=== PATIENT | male | born 1940 | race Caucasian/White ===

== ENCOUNTER 2022-01-08 13:15 | Outpatient (RCR) | payer SELFPAY | END 2022-04-08 23:59 | disposition home or self-care (01) | LOC: ANHBWCAUD 13:15 | DX: Z46.1 Encounter for fitting and adjustment of hearing aid (principal) | CPT/HCPCS: 92593 ==

== ENCOUNTER 2022-03-15 07:49 | Outpatient (CLI) | payer MEDICARE, BC, SELFPAY ==
--- NOTE | 2022-03-15 08:11 | ECG_ITS ---
Measurements Intervals [place] Rate: 54 P: 37 [place]: 285 QRS: 0 QRSD: 142 T: 2 QT: 428 QTc: 406 Interpretive Statements SINUS BRADYCARDIA WITH FIRST DEGREE AV BLOCK INTRAVENTRICULAR CONDUCTION DELAY EARLY PRECORDIAL R/S TRANSITION CONSIDER LATERAL INFARCT, AGE INDETERMINATE ABNORMAL ECG NO PREVIOUS ECG AVAILABLE FOR COMPARISON Electronically Signed On 03-15-2022 8:25:31 CDT by Sedrick Persaud D.O.
== END 2022-03-15 07:50 | disposition home or self-care (01) ==
PROVIDERS: PCP Internal Medicine; Visit Provider Neurological Surgery
DX: M48.061 Spinal stenosis, lumbar region without neurogenic claudication (principal); I44.0 Atrioventricular block, first degree; I45.9 Conduction disorder, unspecified
CPT/HCPCS: 36415; 86850; 86900; 86901; 93005

== ENCOUNTER 2022-03-19 00:06 | Day surgery (SDC) | payer MEDICARE, BC, SELFPAY ==
--- NOTE | 2022-03-14 09:44 | PC.NURSE ---
Report to the Outpatient Waiting Room, entrance under the green pavilion located off [facility], at time _0730 on date _03/19/22 . OR Time: ____929____. Time changes happen often and if your time is changed the preop area will call you the afternoon before. - You and your visitor will be asked to self-screen and do not enter if you have any COVID symptoms. - Only one visitor and NO children visitors are allowed at this time. - The patient visitor is requested to leave or wait in car when not with patient due to restrictions. - A mask is required within the hospital. Patients may have clear liquids (water, carbonated beverages, clear teas, apple juice) until 3 hours prior to surgery with a maximum of 20 ounces. - No food from midnight until time of surgery - Infants may have breast milk until 4 hours before surgery, formula 6 hours prior to surgery. - Children will be allowed to drink immediately following surgery. If applicable, please bring a bottle or sippy cup to assist with drinking. Juice, water, soda, and popsicles are readily available. For infants on formula, please bring formula the day of surgery. Pacifiers are allowed. Take the following medications with a SIP of water the morning of surgery: ___NONE Medications to discontinue per physician _ASPIRIN/ALEVE PER DR REARDON___ PRESERVISION 3 DAYS PRE OP Date to take last dose___PRESERVISION 03/15/22 Please no make-up, nail latvian, hairspray, perfume, deodorant, or body powder the day of surgery. No jewelry (including any body piercings) or valuables the day of surgery, leave them at home. Please take a shower or bath the night before, or the morning of, surgery with an antibacterial soap. Wear comfortable, loose fitting clothing. Children are encouraged to wear pajamas. - Jewelry must be removed prior to entering the operating room. Rings and piercings that are not removed may be cut off. - The hospital will not accept responsibility for valuables. - Please leave all valuables, including medications, at home the day of surgery. If you are going home after surgery, a licensed backhaul driver must drive you home. - NO public transportation without another adult. - We recommend that an adult stay with you for 24 hours following discharge. - We also recommend that you do not drive, make important decision, drink alcoholic beverages, or take any drugs that were not prescribed by your health care provider for at least 24 hours after your discharge time. For Pediatric surgeries, we recommend two adults accompany the child home (only one inside the building at this time). Follow any additional instructions given to you from your surgeon. If you or anyone in your household have experienced Covid symptoms in the past week, please notify your surgeon or the nurse liaison at the phone number below for possible testing. Telephone instructions given to _PATIENT and asked if any additional questions and then verbalized understanding. Patient advised to call surgeon office or pre surgery nurse liaison [phone] if any additional questions.
[2022-03-14 11:00] VITALS: BMI 29.8
--- NOTE | 2022-03-18 11:33 | WPDANESEPPF ---
Anes - Initial Pre Proc Eval Procedure: Operation Date: 03/19/22 09:30 Proposed Procedures p Left L5-S1 Far Lateral Foraminotomy, Microscopic Discectomy of Lumbar Spine - Kamari Ragsdale MD Date/Time: 03/18/22 11:33 Surgeon: Kamari Ragsdale MD Pre Op Diagnosis: foraminal stenosis lumbar, disc herniation Patient Data Age: 81 Gender: M Height: 1.83 m Weight: 99.8 kg Allergies Allergy/AdvReac Type Severity Reaction Status Date / Time No Known Allergies Allergy Verified 03/19/22 07:35 Home Medications Medication Instructions Recorded Confirmed Type amlodipine 5 mg tablet 5 mg PO HS 03/14/22 03/19/22 History aspirin 81 mg tablet,delayed 81 mg PO HS 03/14/22 03/19/22 History release (Adult Low Dose Aspirin) famotidine 20 mg tablet 20 mg PO PRN PRN Heartburn 03/14/22 03/19/22 History naproxen sodium 220 mg capsule 440 mg PO HS PRN Pain 03/14/22 03/19/22 History (Aleve) rosuvastatin 10 mg tablet 10 mg PO HS 03/14/22 03/19/22 History vit C 250 mg-vit E 90 mg-zinc 40 1 tablet PO HS 03/14/22 03/19/22 History mg-copper 1 ln-ehlaoj-pzemur capsule (PreserVision AREDS-2) ECG: Date of Service: 03/15/22 Procedure(s): CA 12 lead EKG Accession Number(s): [id number] cc: ~ ? Measurements Intervals? [place]? Rate: ? 54 ? P:? 37 [place]: ? 285? QRS:? 0 QRSD: ? 142? T:? 2 QT: ? 428? QTc:? 406? Interpretive Statements SINUS BRADYCARDIA WITH FIRST DEGREE AV BLOCK INTRAVENTRICULAR CONDUCTION DELAY EARLY PRECORDIAL R/S TRANSITION CONSIDER LATERAL INFARCT, AGE INDETERMINATE ABNORMAL ECG NO PREVIOUS ECG AVAILABLE FOR COMPARISON Electronically Signed On 03-15-2022 8:25:31 CDT by Sedrick Persaud D.O. Patient hx anesthesia problems: none Family hx anesthesia problems: none Results Review: All pre-operative results and documents have been reviewed as part of the pre-operative evaluation. [facility] Past Medical History Medical History (Updated 03/18/22 @ 11:34 by Cyrus Polanco MD) Arthritis Chronic GERD HTN (hypertension) Hyperlipidemia Prostate CA TIA (transient ischemic attack) Social History Social History Smoking status: Never smoker Living arrangements: alone Spiritual care concerns: No Anes - Eval Final PreProcedure Day of Procedure 03/18/22 11:33 Patient weight: obese Heart: regular rate and rhythm Lungs: clear to auscultation and normal air movement Airway: Mallampati scale class II Neurological: alert and oriented Last oral intake: >/= 8 hours ASA classification: III Emergent: no Anesthetic plan: proceed Anesthesia type and monitoring: general ETT Results Review: All pre-operative results and documents have been reviewed as part of the pre-operative evaluation. Informed Consent: The patient's anesthetic plan and its attendant risks and benefits were discussed with the patient/family/POA. Questions were solicited and answers provided to the satisfaction of the patient/family/POA.
[2022-03-19] VITALS (12 sets, daily range): BP systolic 106–166; BP diastolic 57–88; PULSE 60–96; RESP 11–20; TEMP 36.1–36.6; O2SAT 93–100
--- NOTE | ~2022-03-19 | XR_ITS ---
EXAMINATION: XR fluoroscopy no charge DATE: 03/19/2022 9:30 CDT INDICATION: L5-S1 FAR LEFT LATERAL DISCECTOMY . TECHNIQUE: 1 fluoroscopic image of the lumbar spine were obtained during L5-S1 discectomy performed b y the surgeon. I was not present in the operating room. Fluoroscopy exposure time was 3.7 seconds. COMPARISON: None FINDINGS: A single intraoperative spot view demonstrates instrument localization of the posterior element of L5 . IMPRESSION: Fluoroscopic documentation of L5-S1 discectomy. Please refer to the operative note for complete proce dural details . Reviewed, dictated and finalized at location K. IMPRESSION: Fluoroscopic documentation of L5-S1 discectomy. Please refer to the operative n ote for complete procedural details .
[2022-03-19] MEDS: LACTATED RINGERS 1,000 ML 30 ML IV CONT (08:10)
--- NOTE | 2022-03-19 08:25 | P.HP_ITS ---
H&P: HPI History of Present Illness Date/Time: 03/19/22 08:25 Chief Complaint: Back and leg pain Narrative: Saulo is an 81-year-old gentleman with back and left lower extremity discomfort related to stenosis in the foramen at L5-S1 on the left secondary to herniated nucleus pulposus who presents for decompression by way of far lateral foraminotomy and microdiskectomy on the left at L5-S1. He has not changed appreciably since we last saw him last. He does not have specific muscle group weakness and occasional dermatomal numbness. He does not have bowel or bladder difficulty. Review of Systems Review of Systems: Patient denies shortness of breath, cough, fever, chills, nausea, vomiting, weight loss, weight gain, chest pain, dysuria. He has back and leg pain as above. His review of systems is otherwise negative on 12 systems except as noted elsewhere. [facility] Past Medical History Medical History Arthritis Chronic GERD HTN (hypertension) Hyperlipidemia Prostate CA TIA (transient ischemic attack) Social History Social History Smoking status: Never smoker Living arrangements: alone Spiritual care concerns: No Meds Home Medications and Allergies Home Medications Medication Instructions Recorded Confirmed Type amlodipine 5 mg tablet 5 mg PO HS 03/14/22 03/19/22 History aspirin 81 mg tablet,delayed 81 mg PO HS 03/14/22 03/19/22 History release (Adult Low Dose Aspirin) famotidine 20 mg tablet 20 mg PO PRN PRN Heartburn 03/14/22 03/19/22 History naproxen sodium 220 mg capsule 440 mg PO HS PRN Pain 03/14/22 03/19/22 History (Aleve) rosuvastatin 10 mg tablet 10 mg PO HS 03/14/22 03/19/22 History vit C 250 mg-vit E 90 mg-zinc 40 1 tablet PO HS 03/14/22 03/19/22 History mg-copper 1 [id number]-krbugv-rpmnvx capsule (PreserVision AREDS-2) Allergies Allergy/AdvReac Type Severity Reaction Status Date / Time No Known Allergies Allergy Verified 03/19/22 07:35 Vital Signs Vital Signs - 24 hr 03/19/22 07:47 Temperature 97.5 F L Pulse Rate 60 Respiratory Rate 16 Blood Pressure 146/80 H Pulse Oximetry 100 Oxygen Delivery Room Air Exam Neuro: Other: Strength is normal in the bilateral lower extremities to direct confrontation Sensation is intact to light touch throughout the lower extremities. Clear to auscultation Regular rate and rhythm Assessment and Plan Assessment and plan (1) Lumbar disc herniation: Code(s): M51.26 - Other intervertebral disc displacement, lumbar region Status: Acute Plan Saulo is an 81-year-old gentleman who presents for left L5-S1 far lateral foraminotomy and microdiskectomy. I described to him again that operation, its risks, potential benefits, the operative and postoperative course in detail answered all his questions personally. He indicates understanding and elects to proceed with that operation.
--- NOTE | 2022-03-19 08:27 | WPDHPUPDATE1 ---
History and Physical Update Update Date/Time: 03/19/22 08:27 History and Physical has been reviewed, including an updated exam of the patient. There are NO changes in the patient's condition. Risks, benefits, and alternatives have been discussed and questions answered. Patient agrees to proceed with procedure.
[2022-03-19] MEDS: ceFAZolin 2 GM/D5W 50 ML 2 GM/50 ML BAG IVPB (09:04)
[2022-03-19] MEDS: LIDO 1%/EPINEPHRINE 1:100,000 20 ML VIAL 10 ML INFILTRATE (09:47)
[2022-03-19] MEDS: HEMOSTATIC MATRIX (SURGIFLO with THROMBIN) KIT 1 KIT XX (09:52)
--- NOTE | 2022-03-19 10:20 | P.OP_ITS ---
Procedure Note - Detailed Date of Procedure 03/19/22 Pre-op Diagnosis foraminal stenosis lumbar, disc herniation Post-op Diagnosis Same Procedure Performed Left L5-S1 far lateral foraminotomy and microdiskectomy Surgeon Kamari Ragsdale MD Director Of Event Management Subhash Anesthesia General Indications Saulo is an 81-year-old gentleman with left lower extremity pain related to compression in the foramina presents for decompression. This is at L5-S1 left. Description of Procedure Saulo was taken to the operating room in the supine position, was sedated, intubated and placed under general anesthesia in routine fashion. He was then turned into the prone position on a Dheeraj frame. The are operation on his back was examined, marked for incision, prepped and draped in routine sterile fashion. Incision was marked over the L5 and S1 spinous processes in the midline. This area was injected with 0.5% lidocaine with [id number] and Afrin. Intravenous antibiotics given prior to incision. Incision was made with a 10 blade scalpel down to the lumbodorsal fascia. A subperiosteal dissection of the muscle soft tissue away from the spinous process and lamina at L5 and S1 on the left was performed with a subperiosteal elevator and Bovie cautery. A verifying x-rays obtained to verify the level of operation. On the left at L5-S1 Midas-Robin drill was used to perform a lateral resection of the pars and facet until the soft contents of the foramen were encountered. The yellow ligament was lifted removed piecemeal using Kerrison punches under microscopy. The nerve root was identified and reflected superiorly. Heart disc herniation was noted beneath the nerve. Um the ligament was entered using 11 blade scalpel. An Renny curette curved curette Sherman rongeur and Kerrison punch were used to push free and removed fragments of hard disc herniation from beneath the nerve and removed from the wound. These maneuvers were performed until a nerve hook could be placed proximally distally above and below the nerve to confirm lack of compression. The wound was then copiously irrigated with bacitracin irrigation all bleeding stopped with bipolar and Bovie cautery and Gelfoam thrombin powder. The wound was then closed in layered fashion with 2-0 Vicryl interrupted sutures in the lumbodorsal fascia and Sukhwinder's layer. 3-0 Vicryl buried interrupted sutures were placed in the dermis and the skin was closed with a running 4-0 Monocryl subcuticular stitch and dressed with Dermabond. The patient was then allowed to wake up in the operating room was taken to the recovery room in stable condition. There were no immediate complications of this operation. All counts were reported correct at the end of the case. Blood loss was 25 cc. The patient was neurologically at his baseline postoperatively. Estimated Blood Loss 25 IV Fluids 1,000 Complications None Condition Stable Disposition PACU
[2022-03-19] MEDS: fentaNYL CITRATE INJ (*CRX) 100 MCG/2 ML VIAL 25 MCG IV PUSH ×2 (11:01→11:40)
--- NOTE | 2022-03-19 12:13 | PC.NURSE ---
This patient, Saulo Ozuna, was admitted to Medical Room 247-. Patient/family oriented to hospital policies and general routines including ID bracelet, bed and alarms, visiting hours, pain management, procedures, bathroom and other care routines, personal items, smoking policy, room service/diet, and visiting hours. Information on how to activate the Rapid Response Team has been discussed. Patient/Family are encouraged to report perceived risks to care and to ask questions if they do not understand what they are told or what they should do.
[2022-03-19] MEDS: KCL 20 MEQ/D5/0.45% SOD CHL 1,000 ML 100 ML IV CONT (12:21)
[2022-03-19] MEDS: HYDROcodone/acetaminophen (*CRX) 10-325 MG TABLET 1 TAB PO ×2 (12:21→21:04)
[2022-03-19] MEDS: ROSUVASTATIN 10 MG TABLET PO (21:05)
[2022-03-19] MEDS: amLODIPine BESYLATE 5 MG TABLET PO (21:05)
[2022-03-19] MEDS: OPTI-GEN TAB 1 TABLET PO (21:05)
[2022-03-19] MEDS: DOCUSATE SODIUM 100 MG CAPSULE PO (21:05)
[2022-03-20 00:20] VITALS: BP 91/46; PULSE 78; RESP 18; TEMP 36.7; O2SAT 94
[2022-03-20 03:41] VITALS: BP 107/62; PULSE 77; RESP 20; TEMP 36.6; O2SAT 93
--- NOTE | 2022-03-20 07:38 | WPDANESPN ---
Anes - Prog Note Post-Op Date/Time: 03/20/22 07:38 Cardiovascular status: normal Respiratory status: normal Airway patency: baseline Mental status: baseline Post-Op hydration status: normal Vital Signs: Last Vital Signs Temp 98 F 03/20/22 03:41 Pulse 77 03/20/22 03:41 Resp 20 03/20/22 03:41 BP 107/62 03/20/22 03:41 Pulse Ox 93 03/20/22 03:41 O2 Del Method Room Air 03/19/22 20:20 O2 Flow Rate 2 03/19/22 11:34 Pain Score (VAS): 3 I/O: Intake & Output 03/19/22 03/19/22 03/20/22 15:59 23:59 07:59 Intake Total 1590 1780 290 Balance 1590 1780 290 Patient Feedback: Patient satisfied with anesthetic care.
[2022-03-20] MEDS: HYDROcodone/acetaminophen (*CRX) 10-325 MG TABLET 1 TAB PO (09:27)
--- NOTE | 2022-03-20 11:37 | PCOTNOTE ---
Attempted to see patient this am, however upon entering patient was already bathed, dressed, and awaiting discharge. Pt had no concerns as pertains to OT prior to leaving. Pt is planning to stay with girlfriend and is comfortable with adaptive equipment training performed yesterday to follow spinal precautions with bathing and dressing techniques.
== END 2022-03-20 11:57 | disposition home or self-care (01) ==
LOC: ANHSURGERY 09:08 → ANH2MED 12:02
PROVIDERS: PCP Internal Medicine; Visit Provider Neurological Surgery
PROC: (CPT 63005; principal; 2022-03-19 09:30)
DX: M51.26 Other intervertebral disc displacement, lumbar region (principal); M48.061 Spinal stenosis, lumbar region without neurogenic claudication; I10 Essential (primary) hypertension; E78.5 Hyperlipidemia, unspecified; K21.9 Gastro-esophageal reflux disease without esophagitis; Z86.73 Personal history of transient ischemic attack (TIA), and cerebral infarction without residual deficits; Z79.82 Long term (current) use of aspirin; Z85.46 Personal history of malignant neoplasm of prostate; E66.9 Obesity, unspecified; Z68.31 Body mass index [BMI] 31.0-31.9, adult
CPT/HCPCS: 63056; 97161; 97165; 97530; 97535; 99199; A9270; J0690; J1100; J2405; J2704; J2710; J3010; J3480; J7120

== ENCOUNTER 2022-05-03 14:13 | Outpatient (CLI) | payer MEDICARE, BC, SELFPAY ==
--- NOTE | ~2022-05-03 | XR_ITS ---
XR lumbar spine 2-3V DATE: 05/03/2022 14:34 INDICATION: Bilateral low back pain, chronic. No injury. TECHNIQUE: AP, lateral, coned lateral lumbosacral views COMPARISON: None FINDINGS: There is minimal anterolisthesis at L2-3 and L4-5 due to degenerative changes apophyseal dano ints. There is mild to moderate degenerative disc disease at L2-3 through L5-S1.. No fracture or bone destruction. The sacroiliac joints are intact. IMPRESSION: Multilevel mild to moderate degenerative disc disease Reviewed, dictated and finalized at location A.
== END 2022-05-03 14:14 | disposition home or self-care (01) ==
LOC: ANHIMG 14:17
PROVIDERS: PCP Internal Medicine; Visit Provider Neurological Surgery
DX: M51.26 Other intervertebral disc displacement, lumbar region (principal); Z98.890 Other specified postprocedural states; M51.36 Other intervertebral disc degeneration, lumbar region
CPT/HCPCS: 72100

== ENCOUNTER 2023-12-30 08:30 | Outpatient (RCR) | payer SELFPAY | END 2024-03-23 23:59 | disposition home or self-care (01) | LOC: ANHBWCAUD 08:30 | PROVIDERS: PCP Internal Medicine | DX: Z46.1 Encounter for fitting and adjustment of hearing aid (principal) | CPT/HCPCS: 92593; 99199 ==

== ENCOUNTER 2024-01-20 12:25 | Outpatient (CLI) | payer MEDICARE, BC, SELFPAY ==
--- NOTE | ~2024-01-20 | XR_ITS ---
XR knee RT min 4V 01/20/2024 12:39 Indication: Right knee pain Procedure: 4 views right knee Comparison: No prior studies for comparison. Findings: No fracture or traumatic malalignment. No significant joint space narrowing. No joint effus ion. No foreign bodies. Impression: 1: No significant bone or joint abnormality. Reviewed, dictated and finalized at location B. Impression: 1: No significant bone or joint abnormality.
== END 2024-01-20 12:26 | disposition home or self-care (01) ==
PROVIDERS: PCP Internal Medicine; Visit Provider Internal Medicine
DX: M17.11 Unilateral primary osteoarthritis, right knee (principal)
CPT/HCPCS: 73564

== ENCOUNTER 2024-05-12 12:59 | Emergency (ER) | payer MEDICARE, BC, SELFPAY ==
[2024-05-12 13:06] VITALS: BP 173/83; PULSE 62; RESP 16; TEMP 36.3; O2SAT 99
--- NOTE | 2024-05-12 14:01 | ED_ITS ---
HPI - URI/Sore Throat General Chief Complaint: Upper Respiratory Infection Stated Complaint: Sore Throat Time Seen by Provider: 05/12/24 13:50 Source: patient, RN notes reviewed and old records reviewed Mode of arrival: ambulatory Limitations: no limitations History of Present Illness HPI Narrative: 84 year old male who presents to [facility] care with complaints of sore throat, nasal congestion and drainage, and left ear pain for past 3 days.Patient reports that his left ear feels plugged has not noted any drainage from his ear, denies any tragal tenderness. Patient states that he did put some H2O2 in his left ear. and he has taken Claritin for his nasal congestion and drainage. Patient denies any fevers or any body aches. MD elicited complaint: sore throat, rhinorrhea, nasal congestion and other (ear pain) Pertinent past history: other (sinus problem) Onset (ago): day(s) (3-4 days) Pain scale (0-10): 4 Able to tolerate fluids by mouth: Yes Exacerbating factors: swallowing Treatments prior to arrival: other (claritin, peroxide to left ear) Related Data Allergies Allergy/AdvReac Type Severity Reaction Status Date / Time benzonatate Allergy Mild Itching Verified 05/12/24 13:19 tramadol Allergy Mild Itching Verified 05/12/24 13:19 lisinopril AdvReac Mild Cough Verified 05/12/24 13:19 Review of Systems Review of Systems: CONSTITUTIONAL: Denies malaise, chills, sweats, or fever. EYES: Denies visual changes, redness, or discharge. ENT: Reports rhinorrhea, congestion, sinus pain,left otalgia and sore throat. CARDIOVASCULAR: Denies chest pain, palpitations, or edema. RESPIRATORY: Reports no acute cough.? Denies dyspnea. GASTROINTESTINAL: Denies abdominal pain, nausea, vomiting, diarrhea SKIN: Denies rash or itching. MUSCULOSKELETAL: Denies myalgia. NEUROLOGIC: Denies headache. All systems reviewed & are unremarkable except as noted in HPI and below PMFSH Past Medical History Medical History Arthritis Chronic GERD HTN (hypertension) Hyperlipidemia Prostate CA TIA (transient ischemic attack) Surgical History Surgical History H/O Spinal surgery Family History Family History Father Diabetes mellitus Mother Hypertension Social History Social History Social History: Caffeine-coffee Smoking status: Former smoker Alcohol intake: current Alcohol use details: rarely Substance use: never Substance use type: does not use Lack of Transportation: No Lack of Food: Never True Current Housing: I Do Not Have Housing Concerned About Future Housing: No Difficulty Paying Gas/Electric Bills: No Difficulty Paying for Meds: No Currently Unemployed: No Education: Grade School Difficulty w/ Childcare or Family Care: No Living arrangements: alone Spiritual care concerns: No Agree to blood products: Yes Comments At time of signature, agree with nursing past medical, surgical, social and family history. There is no relevant family history pertinent to the presenting complaint Exam Narrative: GENERAL: Well-appearing, well-nourished, and in no acute distress. HEAD: Normocephalic EYES: PERRLA, conjunctivae clear ENT: Nares clear, turbinates edematous and erythematous, clear discharge. Mucous membranes moist.Left TM red, Right TM pearly handy with dull light reflex; no tragal tenderness. Oropharynx erythematous without lesions. Tonsils not enlarged and without exudate, no drooling, no hoarseness, no trismus, uvula midline.post nasal drainage noted NECK: Supple. No lymphadenopathy CHEST: Clear to auscultation, breath sounds equal. No wheezing, rhonchi, rales, or stridor. No respiratory distress, speaks in full sentences.no cough noted SAO2 99% on room air HEART: Regular rate and rhythm. No murmur heard. SKIN: Warm, dry, no rash. NEURO: Alert and oriented x3. PSYCH: Normal mood and affect Course Course Emergency Course: Patient is aware of diagnosis, understands and agrees to treatment plan.? Ant icipatory guidance given.? Patient agrees to follow-up as directed and is aware of reasons to seek care at the emergency department. Portions of this record may have been created with voice recognition software Level of Care: Express Care Visit Vital Signs Vital signs: Vital Signs Temperature 36.3 C L 05/12/24 13:06 Pulse Rate 62 05/12/24 13:06 Respiratory Rate 16 05/12/24 13:06 Blood Pressure 173/83 H 05/12/24 13:06 Pulse Oximetry 99 05/12/24 13:06 Temperature 36.3 C L 05/12/24 13:06 Pulse Rate 62 05/12/24 13:06 Respiratory Rate 16 05/12/24 13:06 Blood Pressure 173/83 H 05/12/24 13:06 Pulse Oximetry 99 05/12/24 13:06 Reviewed MDM - URI/Sore Throat MDM Narrative Medical decision making narrative: Differential diagnosis considered: Espinoza virus, strep pharyngitis, allergic rhinitis, upper respiratory tract infection, sinusitis, rhinosinusitis, nasopharyngitis. viral pharyngitis, otitis media, otitis externa, pneumonia, bronchitis, viral cough syndrome, viral syndrome, and influenza.? Exam findings show no acute concerns or changes; patient is non-toxic appearing and is in no distress.? Patient is appropriate for outpatient treatment and follow-up. Differential Diagnosis Differential diagnosis: Likely upper respiratory infection, otitis media, sinusitis, viral infection, pharyngitis and other (strep pharyngitis) Medical Records Attestation: I reviewed the patient's medical records. Lab Data Attestation: I reviewed the patient's lab results. Lab results narrative: strep screen negative, culture sent Labs: Lab Results 05/12/24 Range/Units 14:02 POC Grp A Strep Screen Negative (Negative) Critical Care Time Critical Care Time Critical Care Time: No Discharge Plan Discharge Clinical Impression: Acute left otitis media, Pharyngitis Patient Disposition: Home, Self-Care Condition: Stable Instructions: Antibiotic Form, Pharyngitis (ED), Ear Infection (ED) Additional Instructions: Increase fluids especially juices and water Hite-unu-xdoglia cough and cold medicine of your choice for your symptoms Zyrtec Claritin or Shanta daily include Coricidin brand decongestant heat to the face 20-30 minutes 4-6 times a day for pain Salt water gargles, throat lozenges or throat sprays as desired Antibiotic as directed--finished the medication Tylenol or ibuprofen for any fever pain If your symptoms persist, change or worsen significantly before you can contact your personal physician then please, without delay, go to the emergency department for further evaluation. Follow-up with PCP in 7-10 days or sooner if needed Follow up with PCP soon in regards to your blood pressure which is elevated above threshold for referral. Blood pressure above 120/80 may indicate pre- hypertension. 173/83 Prescriptions: New amoxicillin 875 mg tablet 875 mg PO Q12H Qty: 20 0RF Follow-up/Referrals: Beena,Dmitriy Alcala MD [Primary Care Provider] - Time of Disposition: 14:10 Quality [place] Coma Scale Eyes: Open Verbal: Oriented and Alert Motor: Follows Commands [place] Coma Total Score: 15
[2024-05-12 14:04] LABS: EDSTREPNEGPOS1 Negative (Negative)
== END 2024-05-12 14:13 | disposition home or self-care (01) ==
PROVIDERS: Emergency Provider Registered Nurse; PCP Internal Medicine
DX: H66.92 Otitis media, unspecified, left ear (principal); J02.9 Acute pharyngitis, unspecified; M19.90 Unspecified osteoarthritis, unspecified site; K21.9 Gastro-esophageal reflux disease without esophagitis; I10 Essential (primary) hypertension; E78.5 Hyperlipidemia, unspecified; Z86.73 Personal history of transient ischemic attack (TIA), and cerebral infarction without residual deficits; Z85.46 Personal history of malignant neoplasm of prostate; Z87.891 Personal history of nicotine dependence
CPT/HCPCS: 87081; 87880; 99213; G0463

== ENCOUNTER 2025-02-01 10:36 | Outpatient (CLI) | payer MEDICARE, BC, SELFPAY ==
--- OUTSIDE RECORDS SUMMARY | 2025-02-01 11:06 | XMS_ITS | Clinical Summary ---
Author Organization [facility] Address [address] [place] [address] Phone Care Team Providers Care Eeg Tech Name Role Phone Dmitriy Hargrove MD Primary Care Provider Social History Tobacco Use Types Packs/Day Years Used Date Smoking Tobacco: Never Assessed Sex and Gender Information Value Date Recorded Sex Assigned at Not on file Legal Sex Male 8:59 PM CDT Gender Identity Not on file Sexual Orientation Not on file Plan of Treatment Health Maintenance Due Date Last Done Comments Hepatitis C Virus (HCV) Screening 1940 Zoster Immunization (1 of 2) 1989 Respiratory Syncytial Virus (RSV) Immunization (Adult) (1 - 1-dose 75+ series) 2014 SARS-COV-2 Immunization ( season) 2024 05/28/2022, 06/12/2021, 08/28/2020, Additional history exists Influenza Immunization (#1) 02/28/202503/30, 04/10/2021, 03/24/2020, Additional history exists Pneumococcal Immunization (50+ years) Completed 11/15/2015, 04/11/2014 DTaP/Tdap/Td Immunization Discontinued 04/13/2019 TdaP Immunization Completed 04/13/2019 Hepatitis B Immunization Aged Out No longer eligible based on patient's age to complete this topic Human Papillomavirus (HPV) Immunization Aged Out No longer eligible based on patient's age to complete this topic Meningococcal Immunization (ACWY) Aged Out No longer eligible based on patient's age to complete this topic Rotavirus Immunization Aged Out No lo nger eligible based on patient's age to complete this topic Insurance [facility] MEDICARE Care Teams Eeg Tech Relationship Specialty Start Date End Date Dmitriy Hargrove MD [address] [facility] [facility] [address] [place] [id number] PCP - General Internal Medicine 04/10/23
--- OUTSIDE RECORDS SUMMARY | 2025-02-01 11:06 | XMS_ITS | Encounter Summary ---
Author Organization [facility] Address [address] [place] [address] Phone Care Team Providers Care Property Management Bookkeeper Name Role Phone Dmitriy Hargrove MD Primary Care Provider Encounter Details Date Type Department Care Team (Late st Contact Info) Description 11/10/2017 Orders Only [facility] ProviderRigoberto MD [address] [place] [address] Social History Tobacco Use Types Packs/Day Years Used Date Smoking Tobacco: Never Smokeless Tobacco: Never Alcohol Use Standard Drinks/Week Comments Yes 0 (1 standard drink = 0.6 oz pur e alcohol) Sex and Gender Information Value Date Recorded Sex Assigned at Not on file Legal Sex Male 7:39 PM PLATFORM POWER TECHNICIAN Gender Identity Not on file Sexual Orientation Not on file documented as of this encounter Plan of Treatment Not on file documented as of this encounter Procedures Procedure Name Priority Date/Time Associated Diagnosis Comments DISCHARGE LABORATORY CUMULATIVE REPORT 11/10/2017 12:00 AM CDT documented in this encounter Results * DISCHARGE LABORATORY CUMULATIVE REPORT (11/10/2017 12:00 AM CDT) Narrative 11/10/2017 12:00 AM CDT Ordered by an unspecified provider. us Historical Provider LAB BLOOD ORDERABLES Sarika l Result documented in this encounter Visit Diagnoses Not on filedocumented in this encounter Additional Health Concerns Infection Onset Date Last Indicated Resolved Time COVID: Suspected 12/28/2021 12/28/2021 12/28/2021 2:39 PM CDT COVID19 12/28/2021 12/28/2021 01/07/2022 3:05 AM CDT COVID: Recovered Comment:Added based on recent COVID infection. 01/07/2022 03/01/2022 05/07/2022 3:[address] COVID: Suspected 05/21/2022 05/21/2022 05/21/2022 10:52 AM PLATFORM POWER TECHNICIAN COVID: Suspected 08/27/2022 08/27/2022 08/27/2022 5:20 PM PLATFORM POWER TECHNICIAN COVID: Suspected 01/13/2023 01/13/2023 01/13/2023 11:21 AM CDT COVID: Suspected 03/25/2023 03/25/2023 03/25/2023 3:56 PM CDT COVID: Suspected 01/25/2024 01/25/2024 01/25/2024 2:25 PM CDT COVID: Suspected 09/16/2024 09/16/2024 09/16/2024 10:00 AM CDT COVID: Suspected 01/13/2025 01/13/2025 01/13/2025 1:45 PM CDT documented as of this encounter Care Teams Property Management Bookkeeper Relationship Specialty Start Date End Date Dmitriy Hargrove MD PCP - General 09/27/16 documented as of this encounter
--- OUTSIDE RECORDS SUMMARY | 2025-02-01 11:06 | XMS_ITS | Encounter Summary ---
Author Organization [facility] Address [address] [place] [id number] Care Team Providers Care Elementary Substitute Teacher Name Role Phone Dmitriy Hargrove MD Primary Care Provider Reason for Visit * Reason Onset Date Comments Scheduling Appointments 07/31/2021 no answe r to confirm [place] exam Encounter Details Date Type Department Care Team ([facility] Contact Info) Description 07/31/2021 Telephone [facility] [address] [place] [phone] Apurva Rapp RT Scheduling Appointments (no answer to confirm [place] exam) Social History Tobacco Use Types Packs/Day Years Used Date Smoking Tobacco: Never Smokeless Tobacco: Never Alcohol Use Standard Drinks/Week Comments Yes 0 (1 standard drink = 0.6 oz pur e alcohol) PHQ-2 Answer Date Recorded PHQ-2 Total Score (If total score is 3 or more points, staff should administer the PHQ-9) 0 05/01/2021 Sex and Gender Information Value Date Recorded Sex Assigned at Not on file Legal Sex Male 7:39 PM WOODEN TANK ERECTOR Gender Identity Not on file Sexual Orientation Not on file documented as of this encounter Plan of Treatment Not on file documented as of this encounter Visit Diagnoses Not on filedocumented in this encounter Additional Health Concerns Infection Onset Date Last Indicated Resolved Time COVID: Suspected 12/28/2021 12/28/2021 12/28/2021 2:39 PM CDT COVID19 12/28/2021 12/28/2021 01/07/2022 3:05 AM CDT COVID: Recovered Comment:Added based on recent COVID infection. 01/07/2022 03/01/2022 05/07/2022 3:[address] COVID: Suspected 05/21/2022 05/21/2022 05/21/2022 10:52 AM WOODEN TANK ERECTOR COVID: Suspected 08/27/2022 08/27/2022 08/27/2022 5:20 PM WOODEN TANK ERECTOR COVID: Suspected 01/13/2023 01/13/2023 01/13/2023 11:21 AM CDT COVID: Suspected 03/25/2023 03/25/2023 03/25/2023 3:56 PM CDT COVID: Suspected 01/25/2024 01/25/2024 01/25/2024 2:25 PM CDT COVID: Suspected 09/16/2024 09/16/2024 09/16/2024 10:00 AM CDT COVID: Suspected 01/13/2025 01/13/2025 01/13/2025 1:45 PM CDT documented as of this encounter Care Teams Elementary Substitute Teacher Relationship Specialty Start Date End Date Dmitriy Hargrove MD PCP - General 09/27/16 documented as of this encounter
--- OUTSIDE RECORDS SUMMARY | 2025-02-01 11:06 | XMS_ITS ---
Author Organization [facility] Address [address] [place] [id number] Care Team Providers Care Data Entry Operator Name Role Phone Dmitriy Hargrove MD Primary Care Provider Active Problems Problem Noted Date Diagnosed Date Acute non-recurrent pansinusitis 01/13/2025 Assessment & Plan (01/13/2025 2:24 PM CDT): Symptoms consistent pansinusitis, mild course however given prolonged duration patient's age will treat with Augmentin for 5 days at this time Nasal congestion 01/13/2025 Assessment & Plan (01/13/2025 2:24 PM CDT): COVID flu negative Acute dermatitis 01/02/2024 Eczema 01/02/2024 Basal cell carcinoma of skin 12/19/2023 Hemangioma of skin and subcutaneous tissue 12/09 Neoplasm of uncertain behavior of skin Actinic keratosis 12/10/2023 Seborrheic keratosis 12/10/2023 Hypersomnia 08/30/2022 Assessment & Plan (08/30/2022 2:14 PM PACKAGING SALES CONSULTANT): Home sleep study rule out sleep apnea call back for results Purulent postnasal drainage 08/09/2022 Assessment & Plan (08/09/2022 2:00 PM PACKAGING SALES CONSULTANT): Continue Pepcid 20 mg twice daily Start Flonase 2 sprays into each nostril while looking down over the sink, do not sniff in or blow nose after use for at least 30 minutes 50 ounces of caffeine free and soda free fluid daily No masses or lesions on the voice box Prediabetes 06/14/2022 Assessment & Plan (03/25/2023 3:17 PM CDT): Lab Results Component Value Date HGBA1C 5.6 12/06/2022 HGBA1C 5.9 (H) 06/04/2022 Lab Results Component Value Date LDLCALC 90 12/06/2022 CREATININE 1.08 12/06/2022 At goal Continue current regimen History of 2019 novel coronavirus disease (COVID -19) 03/01/2022 Medicare annual wellness visit, subsequent 12/11 Right hip pain 08/03/2021 Sensorineural hearing loss ( SNHL) of left ear with restricted hearing of right ear 07/23/2021 Assessment & Plan (08/13/2021 3:32 PM PACKAGING SALES CONSULTANT): Hearing test - [facility], consider Cochlear implant candidacy based on results [facility] [phone] [place] [address] Assessment & Plan (07/23/2021 10:16 AM PACKAGING SALES CONSULTANT): Obtain Hearing test from [facility] and then call regarding candidacy for Cochlear implant Oropharyngeal dysphagia 07/23/2021 Assessment & Plan (07/23/2021 10:16 AM PACKAGING SALES CONSULTANT): Esophagram - call with results Centralized Scheduling: Sacroiliitis 07/03/2021 Laryngopharyngeal reflux (LPR) 06/01/2021 Assessment & Plan (08/09/2022 2:00 PM PACKAGING SALES CONSULTANT): Continue Pepcid 20 mg twice daily Start Flonase 2 sprays into each nostril while looking down over the sink, do not sniff in or blow nose after use for at least 30 minutes 50 ounces of caffeine free and soda free fluid daily No masses or lesions on the voice box Assessment & Plan (06/01/2021 8:53 AM PACKAGING SALES CONSULTANT): Call if ears plug up Start Pepcid 20 mg at bedtime to help with pain with swallowing, call if difficulty swallowing does not improve 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 Assessment & Plan (08/09/2022 2:00 PM PACKAGING SALES CONSULTANT): Continue Pepcid 20 mg twice daily Start Flonase 2 sprays into each nostril while looking down over the sink, do not sniff in or blow nose after use for at least 30 minutes 50 ounces of caffeine free and soda free fluid daily No masses or lesions on the voice box Assessment & Plan (06/01/2021 8:53 AM PACKAGING SALES CONSULTANT): Start Pepcid 20 mg at bedtime to help with pain with swallowing, call if difficulty swallowing does not improve Insomnia secondary to chronic pain 04/17/2021 Other male erectile dysfunction 04/24/2020 Lumbar radiculopathy 09/01/2019 History of prostate cancer 07/06/2019 Lumbar facet arthropathy 07/02/2018 Allergic rhinitis 04/16/2018 Vertigo 03/10/2017 Assessment & Plan (03/10/2017 3:05 PM CDT): Likely to be multifactorial. The middle ear infection is likely exacerbating the majority of the vertigo. Meclizine was prescribed 25 mg t.i.d. p.r.n. for acute relief of vertigo. I advised him the amlodipine to do this as well and the rise slowly after taking medication. Certainly if symptoms persist or they worsen after treating middle ear infection he must follow up in office to determine need further management/assessments. Benign hypertension 11/13/2013 Overview (10/02/2016): BENIGN HYPERTENSION Assessment & Plan (09/13/2024 12:57 PM CDT): BP Readings from Last 3 Encounters: 09/13/24 118/72 06/16/24 118/74 01/29/24 110/70 Vitals BP 118/72 (BP Location: Left arm, Patient Position: Sitting) Pulse 70 Resp 16 Ht 182.9 cm (6' 0.01) Wt 102.6 kg (226 lb 4.8 oz) SpO2 98% BMI 30.68 kg/m Lab Results Component Value Date POTASSIUM 4.3 06/01/2024 At goal at this time Continue current regimen Assessment & Plan (03/25/2023 3:32 PM CDT): BP Readings from Last 3 Encounters: 01/13/23 100/62 12/13/22 124/72 09/05/22 132/80 There were no vitals taken for this visit. Lab Results Component Value Date POTASSIUM 3.8 12/06/2022 At goal at this time D/c norvasc 5 mg every day - has not been taking and bp is well controlled Assessment & Plan (10/22/2021 12:48 PM CDT): Recommend DASH diet, heart-healthy lifestyle, exercise. Discussed the risks of hypertension. Assessment & Plan (11/30/2020 12:27 PM CDT): Recommend DASH diet, heart-healthy lifestyle, exercise. Discussed the risks of hypertension. Assessment & Plan (04/14/2020 9:31 AM CDT): Normotensive in clinic. Pt was advised of continuing heart healthy DASH diet, current antihypertensives, increase exercise as tolerated. Risk of HTN were reviewed. Assessment & Plan (01/24/2020 12:18 PM CDT): Normotensive in clinic. Pt was advised of continuing heart healthy DASH diet, current antihypertensives, increase exercise as tolerated. Risk of HTN were reviewed. Assessment & Plan (05/06/2019 1:49 PM PACKAGING SALES CONSULTANT): Normotensive in clinic. Continue to monitor while on corticosteroids. Normotensive in clinic today. Cnt. With current hypertensives, avoid OTC decongestants, Cnt. With dash diet mild to moderate exercise as tolerated for overall heart health Assessment & Plan (02/10/2019 9:14 AM CDT): Improved upon recheck. Cnt. Current antihypertensive, Norvasc, dash/low-fat diet, baby aspirin for heart health therapy, and mild to moderate daily exercise as tolerated given progressive arthritis. Assessment & Plan (01/06/2019 8:44 AM CDT): Normotensive today in clinic, will Cnt. To monitor given Pt was placed on meloxicam for arthritic control. Cnt. With Norvasc, dash diet follow-up in 1 month for BP recheck Assessment & Plan (03/10/2017 3:02 PM CDT): Stable in office today. Refilled amlodipine. Pt was advised of continuing heart healthy DASH diet, increase exercise as tolerated, and continuing to monitor for any lower leg edema, headaches, changes in vision, or facial flushing. Continue ASA and anti-hypertensives as prescribed. 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 Overview (10/03/2016): MIXED HYPERLIPIDEMIA Assessment & Plan (09/13/2024 12:56 PM CDT): Lab Results Component Value Date CHOL 201 (H) 06/01/2024 CHOL 225 (H) 12/05/2023 CHOL 178 06/07/2023 Lab Results Component Value Date HDL 42 06/01/2024 HDL 52 12/05/2023 HDL 48 06/07/2023 Lab Results Component Value Date LDLCALC 124 06/01/2024 LDLCALC 133 (H) 12/05/2023 LDLCALC 116 06/07/2023 LDL 161 (H) 10/31/2015 LDL 156 (H) 10/27/2014 Lab Results Component Value Date TRIG 196 (H) 06/01/2024 TRIG 201 (H) 12/05/2023 TRIG 69 06/07/2023 No results found for: POCCHDLR No results found for: POCNONHDL No results found for: POCCHLPL Lipids at goal Elevated LDL and not at goal For now continue current regimen Assessment & Plan (03/25/2023 3:31 PM CDT): Lab Results Component Value Date CHOL 153 12/06/2022 CHOL 166 06/04/2022 CHOL 163 11/30/2021 Lab Results Component Value Date HDL 44 12/06/2022 HDL 49 06/04/2022 HDL 51 11/30/2021 Lab Results Component Value Date LDLCALC 90 12/06/2022 LDLCALC 93 06/04/2022 LDLCALC 74 11/30/2021 LDL 161 (H) 10/31/2015 LDL 156 (H) 10/27/2014 Lab Results Component Value Date TRIG 97 12/06/2022 TRIG 122 06/04/2022 TRIG 188 (H) 11/30/2021 No results found for: POCCHDLR No results found for: POCNONHDL No results found for: POCCHLPL Lipids at goal Can d/c rosuvastatin now Chronic bilateral low back pain with left-sided sciatica 11/03/2012 Overview (10/02/2016): LUMBAGO Adiposity 11/03/2012 Overview (10/02/2016): Obesity (BMI 30.0-34.9) Systolic murmur 10/30/2011 Overview (10/04/2016): Heart murmur, systolic Current Treatment and Therapy Plans No current plan information found. Past Treatment and Therapy Plans No past plan information found. Lifetime Dose Tracking * Chemical Lifetime Dose Automatic Entry Manual Entr y Fluoro Time 18.472 minutes 18.472 minutes 0 minutes Air kerma at the reference point (Ka,r) 189.82 mGy 1 89.82 mGy 0 mGy Resolved Problems Problem Noted Date Diagnosed Date Resolved Date Fatigue 08/30/2022 03/25/2023 Assessment & Plan (08/30/2022 2:14 PM PACKAGING SALES CONSULTANT): Check CBC, CMP, thyroid studies, B12, vitamin-D, sleep study and call back for results. Could be viral syndrome. Follow-up with his primary in 2 weeks or sooner if needed. Call back with any new symptoms that may develop. Consideration of stopping rosuvastatin if etiology remains unclear. Bilateral impacted cerumen 12/24/2021 1 08/17/2023 Assessment & Plan (12/24/2021 3:16 PM CDT): Protect Hearing Call if ear plug up again Continue Hearing Aids Impacted cerumen of left ear 06/01/2021 10/22/2021 Assessment & Plan (06/01/2021 8:53 AM PACKAGING SALES CONSULTANT): Call if ears plug up Continue Hearing Aids Dizziness and giddiness 06/01/2021 09/2 11/2022 Assessment & Plan (07/23/2021 10:16 AM PACKAGING SALES CONSULTANT): Obtain Hearing test from [facility] and then call regarding candidacy for Cochlear implant Avoid salt in diet 50 ounces of caffeine free and soda free fluid daily Continue Hearing aids Esophagram - call with results Centralized Scheduling: Assessment & Plan (06/01/2021 9:52 AM PACKAGING SALES CONSULTANT): Will arrange follow up to discuss this in more detail Preop exam for internal medicine 04/14/2020 04/14/2020 Assessment & Plan (04/14/2020 9:32 AM CDT): Pt was advised to continue current therapy and medications for chronic conditions as previously as advised. Continue with healthy dietary management as well. Pt offered no additional complaints today in office. Preoperative medical clearance: Pt is medically stable and aware there are risk associated with surgery and anesthesia. He states the surgeon has reviewed these risk in detail with patient, and wishes to proceed with surgery. They are medically cleared for surgery at this time. Pt was instructed to contact the office with absolutely any changes prior to and post surgery. We will see them back here as scheduled, or certainly sooner as needed. Muscle tear 03/24/2020 06/02/2020 Inattention 12/17/2019 06/02/2020 Assessment & Plan (04/14/2020 9:31 AM CDT): Risk outweighed benefits in regard to starting on stimulant medication for ADD. Demonstrates no other psychosocial diagnoses to explain inattentiveness, we discussed Strattera but again does have an all, HTN which he would like to hold off on this time. Nonpharmacologic recommendations provided. MDD (recurrent major depress jyoti disorder) in remission 12/17/2019 06/02/2020 Assessment & Plan (12/17/2019 11:01 AM CDT): Recommended restarting Wellbutrin D/T mention of inattention also Hx of depression as this medication will assist with both conditions. Declines any depressive sx today. Will Cnt. To closely monitor. tank terminal gauger (current) use of opiate analgesic 09/29/2019 11/26/2019 DDD (degenerative disc disease), lumbar 09/01/2019 06/16/2024 Acute left-sided low back pa in with sciatica-Lt L5 dist 08/24/2019 06/02/2020 Lumbar foraminal stenosis-Lt L5-S1 08/24/2019 12/17/2019 Spondylolisthesis, lumbar re gion-L5 on sacrum grade 2 08/24/2019 06/02/2020 Assessment & Plan (12/17/2019 11:02 AM CDT): Please refer to care plan under lumbar disc disorder with myelopathy Acute lower respiratory infection 05/06/2019 05/06/2019 Assessment & Plan (05/06/2019 1:51 PM PACKAGING SALES CONSULTANT): Given little response from 7 day course of keflex and clinical exam, recommending 10 day course doxycycline w/ tapering steroids for improved coverage for lower resp infecton. Supportive measures advised OTC along with SES of medications prescribed. Will call next week with update and w/o improvement, will order CXR. Lumbar disc disorder with myelopathy 01/06/2019 06/02/2020 Assessment & Plan (04/14/2020 9:31 AM CDT): Stable recommending continuing daily prednisone, Tylenol Assessment & Plan (12/17/2019 11:02 AM CDT): Chronic lumbar disc disease with myopathy to L4 down left LE. Pt I reviewed the imaging today in the office to gather unexplained that does not appear to be any evidence of disc herniation, stenosis indicating surgical candidacy. However he is quite driven to want a 2nd opinion D/T ongoing pain, consultation placed to [facility] to review his imaging, condition and surgical candidacy. Certainly if he is not a surgical candidate, we will consult Pain Management again for injections given his success. Cnt. With ibuprofen, heat, gradual stretching as prior advised. Assessment & Plan (08/19/2019 2:19 PM PACKAGING SALES CONSULTANT): Primarily left sided sciatic pain. Will provide toradol 15mg in office today. In addition will begin prednisone 60mg taper. Patient instructed to follow up in office with absolutely any worsening symptoms. Would consider pain management or physical therapy if no improvement. Patient provided exercises to complete at home as well. Will notify office with any changes. Assessment & Plan (02/10/2019 9:13 AM CDT): Given BL radiculopathy this is likely secondary to progressive lumbar degenerative disc disease. Imaging reviewed and detailed above. Pt would like to Cnt. With some strengthening exercises, seek out home care liaison, Cnt. With increased dose of meloxicam as prior noted. Will consider seeking out 's opinion again given progression in condition. Assessment & Plan (01/06/2019 8:48 AM CDT): Prior imaging reviewed above, this appears to be lumbar arthrosis causing left- sided sciatica, given previous lumbar CTs and MRIs were normal and presentation with pain starting back going down left lower leg (L4/L5 derm). X-ray of left hip ordered today per patient's request, however, aforementioned believe that this is truly radiating from his lumbar spine. Trial of meloxicam, side effects discussed given Hx of hypertension. Advised application of heat stretching exercises, declined further Pt. F/U here in 1 month Chronic diarrhea 02/04/2018 07/06/2019 Assessment & Plan (02/04/2018 11:07 AM CDT): Recommended testing stool samples including checking a CMP for any concerns regarding electrolyte imbalances, renal insufficiency or certainly a liver abnormalities which could be contributing to his diarrhea. Pending results of the labs including stool samples, if all is normal we can consider adding on Questran to take daily along with his current use of Metamucil and probiotics will touch base here later this week regarding need for additional management and also in a week in office as needed regarding condition Cervicalgia 06/09/2017 06/02/2020 Assessment & Plan (05/06/2019 1:57 PM PACKAGING SALES CONSULTANT): Chronic w/ flare-up x 2-3 months. No improvement with mobic after 2 months- advised to discontinue. Cont with chiropractor adjustments, heat/ice, and stretching as advised. Will RTC if imaging if desired. Assessment & Plan (06/09/2017 4:33 PM PACKAGING SALES CONSULTANT): I have recommended we proceed with x-ray of the cervical spine. I have also recommended physical therapy. He is agreeable to bowl. Further direction pending radiologist report and response to physical therapy. He will return for his next scheduled visit but was encouraged to contact me in the interim with any signs or symptoms that are of concern to him. Or, with any change in, worsening, or non improvement in his condition. He may continue Tylenol arthritis on an as-needed basis. Needs flu shot 06/09/2017 12/08/2017 Assessment & Plan (06/09/2017 4:32 PM PACKAGING SALES CONSULTANT): After obtaining patient's consent his annual influenza vaccine was provided during his office visit today. BMI 31.0-31.9,adult 03/10/2017 03/25/20 23 Assessment & Plan (04/14/2017 1:31 PM CDT): Recommended patient to continue to increase heart healthy diet with adequate fruits, vegetables, and plenty of water along with mild-moderate daily exercise as tolerated. Assessment & Plan (03/10/2017 2:58 PM CDT): Recommended patient to continue to increase heart healthy diet with adequate fruits, vegetables, and plenty of water along with mild-moderate daily exercise as tolerated. Right middle ear infection 03/10/2017 0 11/20/2017 Assessment & Plan (04/14/2017 1:41 PM CDT): Considering he noted to have slight improvement with Ceftin and effusion appears to be persistent, I recommended him to see ENT Dr. Dominguez to see about draining his middle ear as were not having much improvement with antimicrobials or steroids. He will touch base with Dr. landaverde to determine further intervention necessary Assessment & Plan (03/10/2017 3:01 PM CDT): Recommended Ceftin 250 mg b.i.d. for full 10 day course long [id number] Flonase certainly if symptoms persist or worsen in regard to this middle ear infection he was advised follow up in our office regarding condition Recurrent major depressive d isorder, in remission 03/10/2017 06/16/2024 Assessment & Plan (03/10/2017 3:01 PM CDT): Refilled Effexor today in office as he remains asymptomatic at this time indicating medications effectiveness. Follow-up in 6 months regarding condition Malignant neoplasm of prostate 11/13/2013 07/06/2019 Overview (10/02/2016): MALIGN NEOPL PROSTATE
--- OUTSIDE RECORDS SUMMARY | 2025-02-01 11:06 | XMS_ITS | Clinical Summary ---
Author Organization [facility] Address [address] [place] [phone] Care Team Providers Care Jewel Inserter Name Role Phone Dmitriy Hargrove MD Primary Care Provider Allergies Active Allergy Reactions Criticality Noted Date Comments Benzonatate Itching Low 07/02/2018 Clarithromycin Unknown 12/04/2006 Iodinated Contrast Media Joint pain Low Hydrocodone-Acetaminophen Unknown 12/04/2006 Lisinopril Cough Reaction: Cough, Tramadol Itching Reaction: itch, Medications aspirin, buffered (BUFFERIN) 81 mg tablet Take one daily by mouth 30 5 0 Active ipratropium (ATROVENT) 21 mcg (0.03 %) nasal spray Administer 2 sprays into each nostril 3 (three) times a day 90 mL 11 4 Active albuterol HFA (PROVENTIL HFA,VENTOLIN HFA,PROAIR HFA) 90 mcg/actuation inhalerIndicati ons:Shortness of breath Inhale 2 puffs every 4 (four) hours as needed for wheezing or shortness of breath 1 each 5 Active triamcinolone (KENALOG) 0.1 % ointment APPLY A THIN LAYER TO THE AFFECTED AREA(S) BY TOPICAL ROUTE 2 TIMES PER DAY 5 Active amoxicillin-cla vulanate (AUGMENTIN) 875-125 mg per tablet Take 1 tablet by mouth 2 (two) times a day for 5 days 10 tablet 5 01/19/20 25 Active Problems Problem Noted Date Diagnosed Date [...] 08/30/2022 Assessment & Plan (08/30/2022 2:14 PM FURNITURE DIPPER): Home sleep study rule out sleep apnea call back for results Purulent postnasal drainage 08/09/2022 Assessment & Plan (08/09/2022 2:00 PM FURNITURE DIPPER): Continue Pepcid 20 mg twice daily Start [...] 07/23/2021 Assessment & Plan (08/13/2021 3:32 PM FURNITURE DIPPER): Hearing test - [facility], consider Cochlear implant candidacy based on results [facility] [phone] [place] [id number] Assessment & Plan (07/23/2021 10:16 AM FURNITURE DIPPER): Obtain Hearing test from [facility] and then call regarding candidacy for Cochlear implant Oropharyngeal dysphagia 07/23/2021 Assessment & Plan (07/23/2021 10:16 AM FURNITURE DIPPER): Esophagram - call with results Centralized Scheduling: Sacroiliitis 07/03/2021 Laryngopharyngeal reflux (LPR) 06/01/2021 Assessment & Plan (08/09/2022 2:00 PM FURNITURE DIPPER): Continue Pepcid 20 mg twice daily Start Flonase 2 sprays into each nostril while looking down over the sink, do not sniff in or blow nose after use for at least 30 minutes 50 ounces of caffeine free and soda free fluid daily No masses or lesions on the voice box Assessment & Plan (06/01/2021 8:53 AM FURNITURE DIPPER): Call if ears plug up Start Pepcid 20 mg at bedtime to help with pain with swallowing, call if difficulty swallowing does not improve 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 Assessment & Plan (05/06/2019 1:49 PM FURNITURE DIPPER): Normotensive in clinic. Continue to monitor while [...] murmur 10/30/2011 Overview (10/04/2016): Heart murmur, systolic Resolved Problems Problem Noted Date Diagnosed Date Resolved Date Fatigue 08/30/2022 03/25/2023 Assessment & Plan (08/30/2022 2:14 PM FURNITURE DIPPER): Check CBC, CMP, thyroid studies, B12, vitamin-D, [...] 10/22/2021 Assessment & Plan (06/01/2021 8:53 AM FURNITURE DIPPER): Call if ears plug up Continue Hearing Aids Dizziness and giddiness 06/01/202103/01 Assessment & Plan (07/23/2021 10:16 AM FURNITURE DIPPER): Obtain Hearing test from [facility] and then call regarding candidacy for Cochlear implant Avoid salt in diet 50 ounces of caffeine free and soda free fluid daily Continue Hearing aids Esophagram - call with results Centralized Scheduling: Assessment & Plan (06/01/2021 9:52 AM FURNITURE DIPPER): Will arrange follow up to discuss this [...] sx today. Will Cnt. To closely monitor. joint terminal attack controller (current) use of opiate analgesic 09/29/2019 11/26/2019 [...] 05/06/2019 Assessment & Plan (05/06/2019 1:51 PM FURNITURE DIPPER): Given little response from 7 day course [...] opinion D/T ongoing pain, consultation placed to [facility] neurosurgey to review his imaging, condition and surgical candidacy. Certainly if he is not a surgical candidate, we will consult Pain Management again for injections given his success. Cnt. With ibuprofen, heat, gradual stretching as prior advised. Assessment & Plan (08/19/2019 2:19 PM FURNITURE DIPPER): Primarily left sided sciatic pain. Will provide [...] Cnt. With some strengthening exercises, seek out hospice patient care secretary, Cnt. With increased dose of meloxicam as [...] 06/02/2020 Assessment & Plan (05/06/2019 1:57 PM FURNITURE DIPPER): Chronic w/ flare-up x 2-3 months. No improvement with mobic after 2 months- advised to discontinue. Cont with chiropractor adjustments, heat/ice, and stretching as advised. Will RTC if imaging if desired. Assessment & Plan (06/09/2017 4:33 PM FURNITURE DIPPER): I have recommended we proceed with x-ray [...] 12/08/2017 Assessment & Plan (06/09/2017 4:32 PM FURNITURE DIPPER): After obtaining patient's consent his annual influenza [...] b.i.d. for full 10 day course long [id number] Flonase certainly if symptoms persist or worsen [...] 11/13/2013 07/06/2019 Overview (10/02/2016): MALIGN NEOPL PROSTATE Encounters Date Type Department Care Team Description 01/13/2025 1:30 PM CDT Office Visit [facility] Residency Clinic at [address] [place] [phone] Fina Deluca MD Acute non-recurrent pansinusitis (Primary Dx); Nasal congestion 12/30/2024 Orders Only [facility] Health Information Management [address] [place] [address] Dmitriy Hargrove MD 12/16/2024 2:00 PM CDT Office Visit [facility] Primary Care at [address] [place] [address] Dmitriy Hargrove MD Medicare annual wellness visit, subsequent (Primary Dx); BMI 29.0-29.9,adult; Benign hypertension; History of prostate cancer; Lumbar radiculopathy; Multiple-type hyperlipidemia; Prediabetes 12/09/2024 9:00 AM CDT Lab [facility] [address] [place] [address] Benign hypertension; Prediabetes; History of prostate cancer from Last 3 Months Immunizations Immunization Administration Dates Next Due Influenza, Quad, Adjuvantate d, Intramuscular 04/22/2024,05/16/2023 Influenza, Quadrivalent, Hig h Dose, Preservative Free, Intrr 04/12/2022,04/10/2021,03/24/2020 Influenza, Split 04/17/2012,04/16/2010, 9 Influenza, Trivalent, High D ose, Split, Preservative Free, Intramuscular 04/13/2019,04/13/2018,06/09/2017,06/06,04/17/2015,04/11/2014,04/14/2013 Influenza, Unspecified 03/25/2023(Deferr ed: Patient Refused),04/07/2022(Deferred: Patient Refused),03/12/2021(Deferred: Patient Refused - provider not giving yet),03/05/2019(Deferred: Patient Refused),02/10/2019(Deferred: Patient Refused - not available) Moderna SARS-CoV-2 Monovalen t Vaccination (12+ YRS) 08/28/2020,07/28/2020 Pneumococcal Conjugate PCV 13 04/11/2014 Pneumococcal Polysaccharide PPV23 11/15/2015 Sars-cov-2 Covid-19 Mrna, Bi valent, Original/omicron Ba.1, A 04/22/2024 Tdap 04/13/2019 Surgical History Surgery Date Site/Laterality Comments OTHER SURGICAL HISTORY left hand OTHER SURGICAL HISTORY lip surgery BACK SURGERY 04/30/2022 - 05/29/2022 Medical History Medical History Date Comments Hx Other Medical back pain Hx Other Medical abnormal heartb eat Hx Other Medical rheumatoid arth ritis Hx Other Medical kidney stones Hypertension treated by pcp Arthritis lumbar Family History Medical History Relation Name Comments Diabetes Father Diabetes mellit us; Other Mother high blood pres sure; Heart disease Other 1 Family history of heart problems; Cancer Other 2 Family history of cancer; Diabetes Other 3 Family history of diabetes; Hypertension Other 4 Family history of Hypertension; Arthritis Other 5 Family history of arthritis; Mental illness Other 6 Family histor y of Mental illness; Nephrolithiasis Other 7 Family histo ry of Kidney stones; Relation Name Status Comments Father Mother Other 1 Other 2 Other 3 Other 4 Other 5 Other 6 Other 7 Social History Tobacco Use Types Packs/Day Years Used Date Smoking Tobacco: Never Smokeless Tobacco: Never Tobacco Cessation:Counseling Given: Not Answered Alcohol Use Standard Drinks/Week Comments Yes 0 (1 standard drink = 0.6 oz pur e alcohol) AUDIT-C Answer Date Recorded Q1: How often do you have a drink containing alcohol? Never 01/13/2025 Q2: How many drinks containi ng alcohol do you have on a typical day when you are drinking? Patient does not drink Q3: How often do you have si x or more drinks on one occasion? Never 01/13/2025 PHQ-2 Answer Date Recorded PHQ-2 Total Score (If total score is 3 or more points, staff should administer the PHQ-9) 0 01/13/2025 Personal Safety Answer Date Recorded Have you ever been in or are you currently in a harmful physical or emotional relationship or is someone making you feel afraid or unsafe? Denies 05/12/2023 Sex and Gender Information Value Date Recorded Sex Assigned at Not on file Legal Sex Male 7:39 PM FURNITURE DIPPER Gender Identity Not on file Sexual Orientation Not on file Obstetrics History Last Filed Vital Signs Vital Sign Reading Time Taken Comments Blood Pressure 124/76 01/13/2025 1:21 PM CDT Pulse 67 01/13/2025 1:21 PM CDT Temperature 36.6 C (97.8 F) 12/16/2024 1:19 PM CDT Respiratory Rate 16 01/13/2025 1:21 PM CDT Oxygen Saturation 94% 01/13/2025 1:21 PM CDT Inhaled Oxygen Concentration - - Weight 102.2 kg (225 lb 4.8 oz) 01/13/2025 1:21 PM CDT Height 182.9 cm (6' 0.01) 01/13/2025 1:21 PM CD T Body Mass Index 30.55 01/13/2025 1:21 PM CDT Plan of Treatment Health Maintenance Due Date Last Done Comments Hepatitis B Screening 1958 Zoster Vaccine (1 of 2) 1989 Covid-19 Vaccine (2023-2 5 season) 2024 04/22/2024, 05/16/2023, 05/28/2022, Additional history exists Influenza Vaccine (#1) 2025 , 05/16/2023, 04/12/2022, Additional history exists Prostate Cancer Screening-PSA 12/09/2025, 12/05/2023, 12/06/2022, Additional history exists Well Visit 65+ 12/16/2025 12/16/2024, 11/28, 12/13/2022, Additional history exists Depression Screening 01/13/2026 01/13/2025, 12/16/2024, 06/16/2024, Additional history exists Fall Risk Assessment 01/13/2026 01/13/2025, 12/16/2024, 06/16/2024, Additional history exists DTaP/Tdap/Td Vaccine (2 - Td or Tdap) 04/13/2029 04/13/2019 Colon Cancer Screening-CT Colonography Discontinued 12/28/2013, 12/28/2013, 11/13/2010 Colon Cancer Screening-Colonoscopy Discontinued 12/28/2013, 12/28/2013, 11/13/2010 Colon Cancer Screening-DNA Stool Discontinued 12/28/2013, 12/28/2013, 11/13/2010 Colon Cancer Screening-FIT Discontinued 12/28, 12/28/2013, 11/13/2010 Colon Cancer Screening-Sigmoidoscopy Discontinued 12/28/2013, 12/28/2013, 11/13/2010 Pneumococcal vaccine 65+ Completed 11/15/2015, 03/30 Goals Goal Patient Goal Type Associated Problems Recent Progress Patient-Stated? Author [facility] No change(2021 1:44 PM CDT) No Archana Molina, RN Note: Patient will establish a comfort-function goal and identify the pain level that will allow the patient to perform desired activities and achieve an acceptable quality of life. Procedures Procedure Name Priority Date/Time Associated Diagnosis Comments POC INFLUENZA A/B, COVID-19 ANTIGEN Routine 01/13/2025 1:27 PM CDT Nasal congestion SCAN - LABS 12/30/2024 EGFR Routine 12/09/2024 9:06 AM CDT Benign hypertension PSA SCREEN Routine 12/09/2024 9:06 AM CDT History of prostate cancer LIPID PANEL Routine 12/09/2024 9:06 AM CDT Benign hypertension HEMOGLOBIN A1C Routine 12/09/2024 9:06 AM CDT Prediabetes COMPREHENSIVE METABOLIC PANEL Routine 12/09/2024 9:06 AM CDT Benign hypertension COLONOSCOPY IMAGES 12/28/2013 from Last 3 Months or Most Recently Relevant to Health Maintenance Results * POC Influenza A/B, COVID-19 antigen (01/13/2025 1:27 PM CDT) Pathologist [facility] Influenza A Ag, POC Negative Negative [facility] Influenza B Ag, POC Negative Negative [facility] COVID-19 Ag POC Presumptive Negative Presumptive Negative, Invalid [facility] Nasal 01/13/2025 1:27 PM CDT us Fina Deluca MD POINT OF CARE TEST ORDERABL ES Final Result [facility] 2 [facility] [address] [place] [phone] * SCAN - LABS (12/30/2024) us Dmitriy Hargrove MD Final R esult * eGFR (12/09/2024 9:06 AM CDT) eGFR 76 >=60 mL/min/1. 73 m2 Comment: Interpretive Data Reference Interval Normal >/= 90 mL/min/1.73m2 Mildly decreased* 60 - 89 mL/min/1.73m2 Mildly to moderately decreased 45 - 59 mL/min/1.73m2 Moderately to severely decreased 30 - 44 mL/min/1.73m2 Severely decreased 15 - 29 mL/min/1.73m2 Kidney Failure < 15 mL/min/1.73m2 *Relative to young adult level Estimated glomerular filtration rate is determined by the 2020 CKD-EPI equation recommended by the National Kidney Foundation (A Unifying Approach to GFR Estimation: Recommendations of the NKF-ASK Task Force on Reassessing the Inclusion of Race in Diagnosing Kidney Disease, JASN 2020). The CKD-EPI equation should not be used for patients with unstable renal function and has not been validated in children and those over 70. Current interpretive data was last reviewed 2021. Blood 12/09/2024 9:06 AM CDT 12/09/2024 9:27 AM CDT us Dmitriy Hargrove MD LAB BLOOD ORDERABLES Fi nal Result [facility] 1 [facility] Department [place] [address] * PSA screen (12/09/2024 9:06 AM CDT) PSA-Total 0.44 <=6.20 ng/mL Comment: Interpretive Data AGE SEX REFERENCE INTERVAL 0 minutes-150 years Female None 0 minutes-49 years Male None 50-59 years Male 0-3.90 60-69 years Male 0-5.40 70-79 years Male 0-6.20 80-150 years Male 0-6.20 The Chace PSA Total assay procedure was used. Results from different manufacturers or methods may not be comparable. Serial testing should be performed using the same method. Current interpretive data last revised 21. Blood 12/09/2024 9:06 AM CDT 12/09/2024 9:27 AM CDT us Dmitriy Hargrove MD LAB BLOOD ORDERABLES Fi nal Result Performing Organization Address [facility] Co de Phone Number BRITTANY OLSON (Y[place]) 1 [facility] [employer] [place] [address] * (ABNORMAL) Hemoglobin A1c (12/09/2024 9:06 AM CDT) Hgb A1C 6.0(H) 4.0 - 5.6 % Estimated Average Glucose 126 mg/dL BRITTANY OLSON ([place]) Comment: The ADA recommends reporting an estimated Average Glucose (eAG) with all Hemoglobin A1c results using the equation derived from a study of 507 normal and diabetic adults. Minority populations were underrepresented and children were not included. (Diabetes Care 31:4510-8309, 2008). The eAG is not equivalent to a fasting glucose. Blood 12/09/2024 9:06 AM CDT 12/09/2024 9:27 AM CDT Dmitriy Hargrove MD LAB BLOOD ORDERABLES Fi nal Result Performing Organization Address [facility] Co de Phone Number BRITTANY OLSON ([place]) 1 [facility] [place] [address] * Lipid panel (12/09/2024 9:06 AM CDT) Cholesterol 190 30 - 199 mg/dL Comment: Interpretive Data Ages < or = 19 years Acceptable: <170 mg/dL Borderline high: 170-199 mg/dL High: >or= 200 mg/dL Ages > or = 20 years Desirable: <200 mg/dL Borderline high: 200-239 mg/dL High: >or= 240 mg/dL Literature References: 1. Expert Panel on Integrated Guidelines for Cardiovascular Health and Risk Reduction in Children and Adolescents. Pediatrics 2011;128:S213 2. NCEP Expert Panel. Circulation 2004;110:227 Current Interpretive Data was last revised on 2018. Triglycerides 117 <=149 mg/dL BRITTANY OLSON ([place]) Comment: Interpretive Data Ages < or = 9 years Acceptable: <75 mg/dL Borderline high: 75-99 mg/dL High: >or= 100 mg/dL Ages 10 to 20 years Acceptable: <90 mg/dL Borderline high: 90-129 mg/dL High: >or= 130 mg/dL Ages > or = 20 years Desirable: <150 mg/dL Borderline high: 150-199 mg/dL High: 200-499 mg/dL Very high: >or= 499 mg/dL Literature References: 1. Expert Panel on Integrated Guidelines for Cardiovascular Health and Risk Reduction in Children and Adolescents. Pediatrics 2011;128:S213 2. NCEP Expert Panel. Circulation 2004;110:227 Current Interpretive Data was last revised on 2018. HDL 44 >=40 mg/dL BRITTANY Newman ([place]IA) Comment: Interpretive Data Ages < or = 19 years Acceptable: >45 mg/dL Borderline low: 40-45 mg/dL Low: <40 mg/dL Ages > or = 20 years Desirable: >or= 60 mg/dL Low: <40 mg/dL Literature References: 1. Expert Panel on Integrated Guidelines for Cardiovascular Health and Risk Reduction in Children and Adolescents. Pediatrics 2011;128:S213 2. NCEP Expert Panel. Circulation 2004;110:227 Current Interpretive Data was last revised on 2018. LDL, calculated 125 <=129 mg/dL BRITTANY OLSON ([place]) Comment: Interpretive Data Ages < or = 19 years Acceptable: <110 mg/dL Borderline high: 110-129 mg/dL High: >or= 130 mg/dL Ages > or = 20 years Optimal: <100 mg/dL Near optimal: 100-129 mg/dL Borderline high: 130-159 mg/dL High: >160 mg/dL Calculated using the Naveed LDL-C estimating equation. This equation was implemented on 2024. Prior to this date LDL-C was estimated using the Friedewald equation. Literature References: 1. Expert Panel on Integrated Guidelines for Cardiovascular Health and Risk Reduction in Children and Adolescents. Pediatrics 2011;128:S213 2. NCEP Expert Panel. Circulation 2004;110:227 3. Naveed Gracia al. RAJNI Cardiol. 2020 October 28;5(5):540-548. doi: 10.1001/jamacardio.2020.0013 Current Interpretive Data was last revised on 2024. Non-HDL Cholesterol 146 mg/dL BRITTANY OLSON ([place]) Comment: Interpretive Data Ages < or = 19 years Acceptable: <120 mg/dL Borderline high: 120-144 mg/dL High: >145 mg/dL Ages > or = 20 years When triglycerides are >200 mg/dL, Non-HDL cholesterol is a secondary target of therapy with treatment goals that are 30 mg/dL greater than the LDL cholesterol target. Literature References: 1. Expert Panel on Integrated Guidelines for Cardiovascular Health and Risk Reduction in Children and Adolescents. Pediatrics 2011;128:S213 2. NCEP Expert Panel. Circulation 2004;110:227 Current Interpretive Data was last revised on 2018. Chol/HDL ratio 4 [facility] ([place]) Blood 12/09/2024 9:06 AM CDT 12/09/2024 9:27 AM CDT Narrative [facility] ([place]) - 12/09/2024 10:08 AM CDT Has the patient been fasting for 8 hours or more?->Yes us Dmitriy Hargrove MD LAB BLOOD ORDERABLES Fi nal Result [facility] ([place] 1 [facility] Department [place] [address] * (ABNORMAL) Comprehensive metabolic panel (12/09/2024 9:06 AM CDT) Sodium 148(H) 135 - 145 mmol/L Potassium, pl 4.1 3.3 - 4.9 mmol/L [facility] ([place]) Chloride 110 97 - 110 mmol/L [facility] ([place]) CO2 26 22 - 32 mmol/L [facility] ([place]) Anion gap 12 2 - 15 mmol/L [facility] ([place]) BUN 22 6 - 25 mg/dL [facility] ([place]) Creatinine 0.98 0.80 - 1.30 mg/dL [facility] ([place]) Glucose 94 70 - 199 mg/dL [facility] ([place]) Comment: Interpretive Data Fasting glucose >/= 126 mg/dl is diagnostic for diabetes. Fasting is defined as no caloric intake for at least 8 hours. Fasting glucose between 100 mg/dl to 125 mg/dl is diagnostic of prediabetes. In a patient with classic symptoms of hyperglycemia or hyperglycemic crisis, a random glucose >/= 200 mg/dl is diagnostic for diabetes. In the absence of unequivocal hyperglycemia, results should be confirmed by repeat testing. The classification and Diagnosis of Diabetes Diabetes Care 202; 46: S19-S40. Current interpretive data was last revised 2022. Calcium 8.8 8.5 - 10.3 mg/dL [facility] ([place]) Bilirubin, total 0.7 0.1 - 1.2 mg/dL [facility] ([place]) Protein, pl 6.5 6.5 - 8.5 g/dL [facility] ([place]) Albumin 3.8 3.5 - 5.0 g/dL [facility] ([place]) Alk phos 51 40 - 130 Units/L [facility] ([place]) ALT 11 7 - 55 Units/L [facility] ([place]) AST 15 10 - 50 Units/L [facility] ([place]) Blood 12/09/2024 9:06 AM CDT 12/09/2024 9:27 AM CDT Narrative [facility] ([place]) - 12/09/2024 10:08 AM CDT Has the patient fasted?->Yes Dmitriy Hargrove MD LAB BLOOD ORDERABLES Fi nal Result BRITTANY OLSON ([place]) 1 [facility] Department [place] [address] * COLONOSCOPY IMAGES (12/28/2013) Anatomical Region Laterality Modality Other Narrative 12/28/2013 Ordered by an unspecified provider. Historical Provider GI PROCEDURE ORDERABLES F inal Result from Last 3 Months or Most Recently Relevant to Health Maintenance Insurance Sprout Route OOS MEDICARE Sprout Route [facility] MEDICARE MEDICARE BLUE ACCESS OOS Advance Directives For more information, please contact: [phone] * Full Code (Latest Code Status on File) Date Activated Date Inactivated Comments 09/29/2018 12:28 PM 09/30/2018 4:44 AM Care Teams Jewel Inserter Relationship Specialty Start Date End Date Dmitriy Hargrove MD PCP - General 09/27/16
--- OUTSIDE RECORDS SUMMARY | 2025-02-01 11:06 | XMS_ITS | Referral Summary ---
Author Organization [facility] Address [address] [place] [phone] Care Team Providers Care [employer]iconductor Testing Group Leader Name Role Phone Dmitriy Hargrove MD Primary Care Provider Encounters Date Type Department Care Team Description 01/13/2025 1:30 PM CDT Office Visit [facility] Medical [facility] Residency Clinic at [address] [phone] Fina Deluca MD Acute non-recurrent pansinusitis (Primary Dx); Nasal congestion 12/30/2024 Orders Only [facility] Health Information Management [address] [place] [address] Dmitriy Hargrove MD 12/16/2024 2:00 PM CDT Office Visit [facility] Medical Group Primary Care at [address] [phone] Dmitriy Hargrove MD Medicare annual wellness visit, subsequent (Primary Dx); BMI 29.0-29.9,adult; Benign hypertension; History of prostate cancer; Lumbar radiculopathy; Multiple-type hyperlipidemia; Prediabetes 12/09/2024 9:00 AM CDT Lab [address] [phone] Benign hypertension; Prediabetes; History of prostate cancer from Last 3 Months Allergies Active Allergy Reactions Criticality Noted Date [...] 12/09 Neoplasm of uncertain behavior of skin 4 Actinic keratosis 12/10/2023 Seborrheic keratosis 12/10/2023 Hypersomnia 08/30/2022 Assessment & Plan (08/30/2022 2:14 PM NEGATIVE TURNER APPRENTICE): Home sleep study rule out sleep apnea call back for results Purulent postnasal drainage 08/09/2022 Assessment & Plan (08/09/2022 2:00 PM NEGATIVE TURNER APPRENTICE): Continue Pepcid 20 mg twice daily Start [...] 07/23/2021 Assessment & Plan (08/13/2021 3:32 PM NEGATIVE TURNER APPRENTICE): Hearing test - [facility], consider Cochlear implant candidacy based on results [facility] [phone] [place] [address] Assessment & Plan (07/23/2021 10:16 AM NEGATIVE TURNER APPRENTICE): Obtain Hearing test from [facility] and then call regarding candidacy for Cochlear implant Oropharyngeal dysphagia 07/23/2021 Assessment & Plan (07/23/2021 10:16 AM NEGATIVE TURNER APPRENTICE): Esophagram - call with results Centralized Scheduling: Sacroiliitis 07/03/2021 Laryngopharyngeal reflux (LPR) 06/01/2021 Assessment & Plan (08/09/2022 2:00 PM NEGATIVE TURNER APPRENTICE): Continue Pepcid 20 mg twice daily Start Flonase 2 sprays into each nostril while looking down over the sink, do not sniff in or blow nose after use for at least 30 minutes 50 ounces of caffeine free and soda free fluid daily No masses or lesions on the voice box Assessment & Plan (06/01/2021 8:53 AM NEGATIVE TURNER APPRENTICE): Call if ears plug up Start Pepcid 20 mg at bedtime to help with pain with swallowing, call if difficulty swallowing does not improve 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 Assessment & Plan (05/06/2019 1:49 PM NEGATIVE TURNER APPRENTICE): Normotensive in clinic. Continue to monitor while [...] 03/25/2023 Assessment & Plan (08/30/2022 2:14 PM NEGATIVE TURNER APPRENTICE): Check CBC, CMP, thyroid studies, B12, vitamin-D, [...] 10/22/2021 Assessment & Plan (06/01/2021 8:53 AM NEGATIVE TURNER APPRENTICE): Call if ears plug up Continue Hearing Aids Dizziness and giddiness 06/01/202103/01 Assessment & Plan (07/23/2021 10:16 AM NEGATIVE TURNER APPRENTICE): Obtain Hearing test from [facility] and then call regarding candidacy for Cochlear implant Avoid salt in diet 50 ounces of caffeine free and soda free fluid daily Continue Hearing aids Esophagram - call with results Centralized Scheduling: Assessment & Plan (06/01/2021 9:52 AM NEGATIVE TURNER APPRENTICE): Will arrange follow up to discuss this [...] sx today. Will Cnt. To closely monitor. jail (current) use of opiate analgesic 09/29/2019 11/26/2019 [...] 05/06/2019 Assessment & Plan (05/06/2019 1:51 PM NEGATIVE TURNER APPRENTICE): Given little response from 7 day course [...] opinion D/T ongoing pain, consultation placed to [facility] neurosurgey to review his imaging, condition and surgical candidacy. Certainly if he is not a surgical candidate, we will consult Pain Management again for injections given his success. Cnt. With ibuprofen, heat, gradual stretching as prior advised. Assessment & Plan (08/19/2019 2:19 PM NEGATIVE TURNER APPRENTICE): Primarily left sided sciatic pain. Will provide [...] Cnt. With some strengthening exercises, seek out lawn care professional, Cnt. With increased dose of meloxicam as [...] 06/02/2020 Assessment & Plan (05/06/2019 1:57 PM NEGATIVE TURNER APPRENTICE): Chronic w/ flare-up x 2-3 months. No improvement with mobic after 2 months- advised to discontinue. Cont with chiropractor adjustments, heat/ice, and stretching as advised. Will RTC if imaging if desired. Assessment & Plan (06/09/2017 4:33 PM NEGATIVE TURNER APPRENTICE): I have recommended we proceed with x-ray [...] 12/08/2017 Assessment & Plan (06/09/2017 4:32 PM NEGATIVE TURNER APPRENTICE): After obtaining patient's consent his annual influenza [...] b.i.d. for full 10 day course long [id number] Flonase certainly if symptoms persist or worsen in regard to this middle ear infection he was advised follow up in our office regarding condition Recurrent major depressive d javier in remission 03/10/2017 06/16/2024 Assessment & Plan (03/10/2017 3:01 PM CDT): Refilled Effexor today in office as he remains asymptomatic at this time indicating medications effectiveness. Follow-up in 6 months regarding condition Malignant neoplasm of prostate 11/13/2013 07/06/2019 Overview (10/02/2016): MALIGN NEOPL PROSTATE Immunizations Immunization Administration Dates Next Due Influenza, [...] PPV23 11/15/2015 Sars-cov-2 Covid-19 Mrna, Bi valent, Original/monaeron Ba.1, A 04/22/2024 Tdap 04/13/2019 Social History Tobacco Use Types Packs/Day Years [...] on file Legal Sex Male 7:39 PM NEGATIVE TURNER APPRENTICE Gender Identity Not on file Sexual Orientation Not on file Last Filed Vital Signs Vital Sign Reading [...] 01/13/2025 1:21 PM CDT Plan of Treatment Not on file Goals Goal Patient Goal Type Associated Problems [...] A/B, COVID-19 antigen (01/13/2025 1:27 PM CDT) Influenza A Ag, POC Negative Negative [facility] Influenza B Ag, POC Negative Negative [facility] COVID-19 Ag POC Presumptive Negative Presumptive Negative, Invalid [facility] Nasal 01/13/2025 1:27 PM CDT us Fina Deluca MD POINT OF CARE TEST ORDERABL ES Final Result [facility] [address] [phone] * SCAN - LABS (12/30/2024) us [...] ORDERABLES Fi nal Result Performing Organization Address [facility] de Phone Number [facility] [place]) [address] [place] [address] [place] [address] * PSA screen (12/09/2024 9:06 AM CDT) [...] ORDERABLES Fi nal Result Performing Organization Address [facility] Co de Phone Number [facility] [address] [place] [address] * (ABNORMAL) Hemoglobin A1c (12/09/2024 9:06 AM CDT) Hgb A1C 6.0(H) 4.0 - 5.6 % Estimated Average Glucose 126 mg/dL [facility] ([place]) Comment: The ADA recommends reporting an estimated Average Glucose (eAG) with all Hemoglobin A1c results using the equation derived from a study of 507 normal and diabetic adults. Minority populations were underrepresented and children were not included. (Diabetes Care 31:9615-6500, 2008). The eAG is not equivalent to a fasting glucose. Blood 12/09/2024 9:06 AM CDT 12/09/2024 9:27 AM CDT us Dmitriy Hargrove MD LAB BLOOD ORDERABLES Fi nal Result [facility] ([place]) 1 [facility] [place] [address] * Lipid panel (12/09/2024 9:06 AM CDT) [...] NCEP Expert Panel. Circulation 2004;110:227 3. Naveed Tripathi et al. RAJNI Cardiol. 2019October 28;5(5):540-548. doi: 10.1001/jamacardio.2020.0013 Current Interpretive Data was [...] LAB BLOOD ORDERABLES Fi nal Result [facility] ([place]) 1 [facility] [place] [address] * (ABNORMAL) Comprehensive metabolic panel (12/09/2024 9:06 AM CDT) Sodium 148(H) 135 - 145 mmol/L Potassium, pl 4.1 3.3 - 4.9 mmol/L [facility] ([place]) Chloride 110 97 - 110 mmol/L [facility] ([place]) CO2 26 22 - 32 [...] classification and Diagnosis of Diabetes Diabetes Care 2021; 46: S19-S40. Current interpretive data was last [...] AM CDT 12/09/2024 9:27 AM CDT Narrative [facility] ([place]) - 12/09/2024 10:08 AM CDT Has the patient fasted?->Yes Dmitriy Hargrove MD LAB BLOOD ORDERABLES Fi nal Result [facility] ([place]) 1 [facility] [place] [address] * COLONOSCOPY IMAGES (12/28/2013) Anatomical Region Laterality Modality Other Narrative 12/28/2013 Ordered by an unspecified provider. Historical Provider GI PROCEDURE ORDERABLES F inal Result from Last 3 Months or Most Recently Relevant to Health Maintenance Insurance [place] [employer] OOS MEDICARE [employer] [facility] MEDICARE MEDICARE [employer] OOS Advance Directives For more information, please contact: [phone] * Full Code (Latest Code Status on File) Date Activated Date Inactivated Comments 09/29/2018 12:28 PM 09/30/2018 4:44 AM Care Teams Semiconductor Testing Group Leader Relationship Specialty Start Date End Date Dmitriy Hargrove MD PCP - General 09/27/16
--- OUTSIDE RECORDS SUMMARY | 2025-02-01 11:07 | XMS_ITS | Clinical Summary ---
Author Organization [facility] Address [address] [place] [address] Care Team Providers Care Ship Design Teacher Name Role Phone Unavailable Primary Care Provider Unavailabl e Social History Tobacco Use Types Packs/Day Years Used Date Smoking Tobacco: Never Sex and Gender Information Value Date Recorded Sex Assigned at Not on file Legal Sex Male 10:50 PM CDT Gender Identity Not on file Sexual Orientation Not on file Last Filed Vital Signs Vital Sign Reading Time Taken Comments Blood Pressure 150/80 11/26/2011 11:14 AM CDT Pulse 85 11/26/2011 11:13 AM CDT Regu lar Temperature - - Respiratory Rate 16 11/26/2011 11:13 AM CDT Oxygen Saturation - - Inhaled Oxygen Concentration - - Weight 113.4 kg (250 lb) 11/26/2011 11:13 AM CDT Height 182.9 cm (6') 11/26/2011 11:13 AM CDT Body Mass Index 33.91 11/26/2011 11:13 AM CDT Plan of Treatment Health Maintenance Due Date Last Done Comments DTaP, Tdap and Td Vaccines ( 1 - Tdap) 1959 Pneumococcal Vaccine: 50+ Ye ars (1 of 1 - PCV) 1989 Zoster Vaccines (1 of 2) 1989 RSV Immunization or 60+ Years (1 - 1-dose 75+ series) 2014 COVID-19 Vaccine ( - 2023-2 5 season) 2024 Meningococcal B Vaccine Aged Out No l onger eligible based on patient's age to complete this topic Meningococcal Vaccine Aged Out No talia abby eligible based on patient's age to complete this topic RSV Immunizations Under 20 Months Aged Out No longer eligible based on patient's age to complete this topic
== END 2025-02-01 10:37 | disposition home or self-care (01) ==
LOC: ANHBWCAUD 10:37
PROVIDERS: PCP Internal Medicine; Visit Provider Otolaryngology
DX: H90.3 Sensorineural hearing loss, bilateral (principal); R42 Dizziness and giddiness; H93.13 Tinnitus, bilateral; H74.8X2 Other specified disorders of left middle ear and mastoid; Z97.4 Presence of external hearing-aid; Z82.2 Family history of deafness and hearing loss
CPT/HCPCS: 92557; 92567

== ENCOUNTER 2025-02-01 11:46 | Emergency (ER) | payer MEDICARE, BC, SELFPAY ==
--- NOTE | ~2025-02-01 | XR_ITS ---
XR knee LT min 4V 02/01/2025 12:32 INDICATION: Left knee pain PROCEDURE: 4 views left knee COMPARISON: No prior studies for comparison. FINDINGS: Fracture, dislocation or subluxation is not identified. The soft tissues appear within norm al limits. No foreign bodies are identified. IMPRESSION: 1: NO ACUTE BONE OR JOINT ABNORMALITY IDENTIFIED. Reviewed, dictated and finalized at location A.
[2025-02-01 11:50] VITALS: BP 144/83; PULSE 60; RESP 16; TEMP 36.5; O2SAT 98
--- OUTSIDE RECORDS SUMMARY | 2025-02-01 12:00 | XMS_ITS | Referral Summary ---
Author Organization [facility] Address [address] [place] [phone] Care Team Providers Care Museum Informatics Specialist Name Role Phone Dmitriy Hargrove MD Primary Care Provider Encounters Date Type Department Care Team Description 01/13/2025 1:30 PM CDT Office Visit [facility] Medical Group Residency Clinic at [address] [phone] Fina Deluca MD Acute non-recurrent pansinusitis (Primary Dx); Nasal congestion 12/30/2024 Orders Only [facility] Health Information Management [address] [place] [address] Dmitriy Hargrove MD 12/16/2024 2:00 PM CDT Office Visit [facility] Medical Group Primary Care at [address] [phone] Dmitriy Hargrove MD Medicare annual wellness visit, subsequent (Primary Dx); BMI 29.0-29.9,adult; Benign hypertension; History of prostate cancer; Lumbar radiculopathy; Multiple-type hyperlipidemia; Prediabetes 12/09/2024 9:00 AM CDT Lab [address] [phone] Benign hypertension; Prediabetes; History of prostate cancer [...] 08/30/2022 Assessment & Plan (08/30/2022 2:14 PM ADMINISTRATIVE OPERATIONS COORDINATOR): Home sleep study rule out sleep apnea call back for results Purulent postnasal drainage 08/09/2022 Assessment & Plan (08/09/2022 2:00 PM ADMINISTRATIVE OPERATIONS COORDINATOR): Continue Pepcid 20 mg twice daily Start [...] 07/23/2021 Assessment & Plan (08/13/2021 3:32 PM ADMINISTRATIVE OPERATIONS COORDINATOR): Hearing test - [facility], consider Cochlear implant candidacy based on results [facility] [phone] [place] [address] Assessment & Plan (07/23/2021 10:16 AM ADMINISTRATIVE OPERATIONS COORDINATOR): Obtain Hearing test from [facility] and then call regarding candidacy for Cochlear implant Oropharyngeal dysphagia 07/23/2021 Assessment & Plan (07/23/2021 10:16 AM ADMINISTRATIVE OPERATIONS COORDINATOR): Esophagram - call with results Centralized Scheduling: Sacroiliitis 07/03/2021 Laryngopharyngeal reflux (LPR) 06/01/2021 Assessment & Plan (08/09/2022 2:00 PM ADMINISTRATIVE OPERATIONS COORDINATOR): Continue Pepcid 20 mg twice daily Start Flonase 2 sprays into each nostril while looking down over the sink, do not sniff in or blow nose after use for at least 30 minutes 50 ounces of caffeine free and soda free fluid daily No masses or lesions on the voice box Assessment & Plan (06/01/2021 8:53 AM ADMINISTRATIVE OPERATIONS COORDINATOR): Call if ears plug up Start Pepcid 20 mg at bedtime to help with pain with swallowing, call if difficulty swallowing does not improve 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 Assessment & Plan (05/06/2019 1:49 PM ADMINISTRATIVE OPERATIONS COORDINATOR): Normotensive in clinic. Continue to monitor while [...] 03/25/2023 Assessment & Plan (08/30/2022 2:14 PM ADMINISTRATIVE OPERATIONS COORDINATOR): Check CBC, CMP, thyroid studies, B12, vitamin-D, [...] 10/22/2021 Assessment & Plan (06/01/2021 8:53 AM ADMINISTRATIVE OPERATIONS COORDINATOR): Call if ears plug up Continue Hearing Aids Dizziness and giddiness 06/01/202103/01 Assessment & Plan (07/23/2021 10:16 AM ADMINISTRATIVE OPERATIONS COORDINATOR): Obtain Hearing test from [facility] and then call regarding candidacy for Cochlear implant Avoid salt in diet 50 ounces of caffeine free and soda free fluid daily Continue Hearing aids Esophagram - call with results Centralized Scheduling: Assessment & Plan (06/01/2021 9:52 AM ADMINISTRATIVE OPERATIONS COORDINATOR): Will arrange follow up to discuss this [...] sx today. Will Cnt. To closely monitor. group home (current) use of opiate analgesic 09/29/2019 11/26/2019 [...] 05/06/2019 Assessment & Plan (05/06/2019 1:51 PM ADMINISTRATIVE OPERATIONS COORDINATOR): Given little response from 7 day course [...] opinion D/T ongoing pain, consultation placed to [facility] neurosurgey to review his imaging, condition and surgical candidacy. Certainly if he is not a surgical candidate, we will consult Pain Management again for injections given his success. Cnt. With ibuprofen, heat, gradual stretching as prior advised. Assessment & Plan (08/19/2019 2:19 PM ADMINISTRATIVE OPERATIONS COORDINATOR): Primarily left sided sciatic pain. Will provide [...] Cnt. With some strengthening exercises, seek out housekeeper child care, Cnt. With increased dose of meloxicam as [...] 06/02/2020 Assessment & Plan (05/06/2019 1:57 PM ADMINISTRATIVE OPERATIONS COORDINATOR): Chronic w/ flare-up x 2-3 months. No improvement with mobic after 2 months- advised to discontinue. Cont with chiropractor adjustments, heat/ice, and stretching as advised. Will RTC if imaging if desired. Assessment & Plan (06/09/2017 4:33 PM ADMINISTRATIVE OPERATIONS COORDINATOR): I have recommended we proceed with x-ray [...] 12/08/2017 Assessment & Plan (06/09/2017 4:32 PM ADMINISTRATIVE OPERATIONS COORDINATOR): After obtaining patient's consent his annual influenza [...] b.i.d. for full 10 day course long [id number] Flonase certainly if symptoms persist or worsen [...] on file Legal Sex Male 7:39 PM ADMINISTRATIVE OPERATIONS COORDINATOR Gender Identity Not on file Sexual Orientation [...] Final Result [facility] [address] [phone] * SCAN - LABS (12/30/2024) us Dmitriy [...] ORDERABLES Fi nal Result Performing Organization Address [facility] de Phone Number [facility] [place]) [address] [place] [address] [email or web address] [address] * PSA screen (12/09/2024 9:06 AM CDT) [...] ORDERABLES Fi nal Result Performing Organization Address [facility] Co de Phone Number [facility] [address] [place] [address] * (ABNORMAL) Hemoglobin A1c (12/09/2024 9:06 AM CDT) Hgb A1C 6.0(H) 4.0 - 5.6 % Estimated Average Glucose 126 mg/dL [facility] ([place]) Comment: The ADA recommends reporting an estimated Average Glucose (eAG) with all Hemoglobin A1c results using the equation derived from a study of 507 normal and diabetic adults. Minority populations were underrepresented and children were not included. (Diabetes Care 31:0718-1508, 2008). The eAG is not equivalent to a fasting glucose. Blood 12/09/2024 9:06 AM CDT 12/09/2024 9:27 AM CDT us Dmitriy Hargrove MD LAB BLOOD ORDERABLES Fi nal Result [facility] ([place]) 1 [facility] [place] [address] * Lipid panel (12/09/2024 9:06 AM CDT) [...] LDL, calculated 125 <=129 mg/dL [facility] ([place]) Comment: Interpretive Data Ages < or = [...] Fi nal Result [facility] ([place]) 1 [facility] [place] [address] * (ABNORMAL) Comprehensive metabolic panel (12/09/2024 9:06 [...] Fi nal Result [facility] ([place]) 1 [facility] [place] [address] * COLONOSCOPY IMAGES (12/28/2013) Anatomical Region Laterality Modality Other Narrative 12/28/2013 Ordered by an unspecified provider. Historical Provider GI PROCEDURE ORDERABLES F inal Result from Last 3 Months or Most Recently Relevant to Health Maintenance Insurance [place] MEDICARE [employer] [facility] MEDICARE MEDICARE [employer] OOS Advance Directives For more information, please contact: [phone] * Full Code (Latest Code Status on File) Date Activated Date Inactivated Comments 09/29/2018 12:28 PM 09/30/2018 4:44 AM Care Teams Museum Informatics Specialist Relationship Specialty Start Date End Date Dmitriy Hargrove MD PCP - General 09/27/16
--- OUTSIDE RECORDS SUMMARY | 2025-02-01 12:00 | XMS_ITS | Clinical Summary ---
Author Organization [facility] Address [address] [place] [address] Care Team Providers Care Upholstery Repairer Name Role Phone Unavailable Primary Care Provider [...]
--- OUTSIDE RECORDS SUMMARY | 2025-02-01 12:00 | XMS_ITS | Clinical Summary ---
Author Organization [facility] Address [address] [place] [address] Phone Care Team Providers Care Bioinformatics Engineer Name Role Phone Dmitriy Hargrove MD Primary [...] patient's age to complete this topic Insurance [facility] MEDICARE Care Teams Bioinformatics Engineer Relationship Specialty Start Date End Date Dmitriy Hargrove MD [address] [facility] [address] [place] [address] PCP - General Internal Medicine 04/10/23
--- OUTSIDE RECORDS SUMMARY | 2025-02-01 12:00 | XMS_ITS | Clinical Summary ---
Author Organization [facility] Address [address] [place] [id number] Care Team Providers Care Language Asst Name Role Phone Dmitriy Hargrove MD Primary [...] 08/30/2022 Assessment & Plan (08/30/2022 2:14 PM FACTORY SUPERINTENDENT): Home sleep study rule out sleep apnea call back for results Purulent postnasal drainage 08/09/2022 Assessment & Plan (08/09/2022 2:00 PM FACTORY SUPERINTENDENT): Continue Pepcid 20 mg twice daily Start [...] 07/23/2021 Assessment & Plan (08/13/2021 3:32 PM FACTORY SUPERINTENDENT): Hearing test - [facility], consider Cochlear implant candidacy based on results [facility] [phone] [place] [id number] Assessment & Plan (07/23/2021 10:16 AM FACTORY SUPERINTENDENT): Obtain Hearing test from [facility] and then call regarding candidacy for Cochlear implant Oropharyngeal dysphagia 07/23/2021 Assessment & Plan (07/23/2021 10:16 AM FACTORY SUPERINTENDENT): Esophagram - call with results Centralized Scheduling: Sacroiliitis 07/03/2021 Laryngopharyngeal reflux (LPR) 06/01/2021 Assessment & Plan (08/09/2022 2:00 PM FACTORY SUPERINTENDENT): Continue Pepcid 20 mg twice daily Start Flonase 2 sprays into each nostril while looking down over the sink, do not sniff in or blow nose after use for at least 30 minutes 50 ounces of caffeine free and soda free fluid daily No masses or lesions on the voice box Assessment & Plan (06/01/2021 8:53 AM FACTORY SUPERINTENDENT): Call if ears plug up Start Pepcid 20 mg at bedtime to help with pain with swallowing, call if difficulty swallowing does not improve 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 Assessment & Plan (05/06/2019 1:49 PM FACTORY SUPERINTENDENT): Normotensive in clinic. Continue to monitor while [...] 03/25/2023 Assessment & Plan (08/30/2022 2:14 PM FACTORY SUPERINTENDENT): Check CBC, CMP, thyroid studies, B12, vitamin-D, [...] 10/22/2021 Assessment & Plan (06/01/2021 8:53 AM FACTORY SUPERINTENDENT): Call if ears plug up Continue Hearing Aids Dizziness and giddiness 06/01/202103/01 Assessment & Plan (07/23/2021 10:16 AM FACTORY SUPERINTENDENT): Obtain Hearing test from [facility] and then call regarding candidacy for Cochlear implant Avoid salt in diet 50 ounces of caffeine free and soda free fluid daily Continue Hearing aids Esophagram - call with results Centralized Scheduling: Assessment & Plan (06/01/2021 9:52 AM FACTORY SUPERINTENDENT): Will arrange follow up to discuss this [...] sx today. Will Cnt. To closely monitor. terminal manager (current) use of opiate analgesic 09/29/2019 11/26/2019 [...] 05/06/2019 Assessment & Plan (05/06/2019 1:51 PM FACTORY SUPERINTENDENT): Given little response from 7 day course [...] opinion D/T ongoing pain, consultation placed to [facility] neurosurgey to review his imaging, condition and surgical candidacy. Certainly if he is not a surgical candidate, we will consult Pain Management again for injections given his success. Cnt. With ibuprofen, heat, gradual stretching as prior advised. Assessment & Plan (08/19/2019 2:19 PM FACTORY SUPERINTENDENT): Primarily left sided sciatic pain. Will provide [...] Cnt. With some strengthening exercises, seek out care center manager, Cnt. With increased dose of meloxicam as [...] 06/02/2020 Assessment & Plan (05/06/2019 1:57 PM FACTORY SUPERINTENDENT): Chronic w/ flare-up x 2-3 months. No improvement with mobic after 2 months- advised to discontinue. Cont with chiropractor adjustments, heat/ice, and stretching as advised. Will RTC if imaging if desired. Assessment & Plan (06/09/2017 4:33 PM FACTORY SUPERINTENDENT): I have recommended we proceed with x-ray [...] 12/08/2017 Assessment & Plan (06/09/2017 4:32 PM FACTORY SUPERINTENDENT): After obtaining patient's consent his annual influenza [...] b.i.d. for full 10 day course long [id number] Flonase certainly if symptoms persist or worsen [...] Description 01/13/2025 1:30 PM CDT Office Visit [facility] at [address] [place] [phone] Fina Deluca MD Acute non-recurrent pansinusitis (Primary Dx); Nasal congestion 12/30/2024 Orders Only [facility] Health Information Management [address] [place] [address] Dmitriy Hargrove MD 12/16/2024 2:00 PM CDT Office Visit [facility] Primary Care at [address] [place] [address] Dmitriy Hargrove MD Medicare annual wellness visit, subsequent (Primary Dx); BMI 29.0-29.9,adult; Benign hypertension; History of prostate cancer; Lumbar radiculopathy; Multiple-type hyperlipidemia; Prediabetes 12/09/2024 9:00 AM CDT Lab [facility] [address] [place] [address] Benign hypertension; Prediabetes; History of prostate cancer [...] on file Legal Sex Male 7:39 PM FACTORY SUPERINTENDENT Gender Identity Not on file Sexual Orientation [...] COVID-19 antigen (01/13/2025 1:27 PM CDT) Pathologist [facility] Influenza A Ag, POC Negative Negative [facility] Influenza B Ag, POC Negative Negative [facility] COVID-19 Ag POC Presumptive Negative Presumptive Negative, Invalid [facility] Nasal 01/13/2025 1:27 PM CDT us Fina Deluca MD POINT OF CARE TEST ORDERABL ES Final Result [facility] 2 [facility] [address] [place] [id number] * SCAN - LABS (12/30/2024) [...] LAB BLOOD ORDERABLES Fi nal Result [facility] MOULTRIE 1 [facility] Department [place] [address] * PSA screen (12/09/2024 9:06 [...] ORDERABLES Fi nal Result Performing Organization Address [facility] Co de Phone Number BRITTANY OLSON (YECENIA) 1 [facility] [email or web address] [address] * (ABNORMAL) Hemoglobin A1c (12/09/2024 9:06 AM CDT) Hgb A1C 6.0(H) 4.0 - 5.6 % Estimated Average Glucose 126 mg/dL BRITTANY OLSON ([place]) Comment: The ADA recommends reporting an estimated Average Glucose (eAG) with all Hemoglobin A1c results using the equation derived from a study of 507 normal and diabetic adults. Minority populations were underrepresented and children were not included. (Diabetes Care 31:5732-4292, 2008). The eAG is not equivalent to a fasting glucose. Blood 12/09/2024 9:06 AM CDT 12/09/2024 9:27 AM CDT Dmitriy Hargrove MD LAB BLOOD ORDERABLES Fi nal Result Performing Organization Address [facility] Co de Phone Number BRITTANY OLSON ([place]) 1 [facility] [email or web address] [place] [address] * Lipid panel (12/09/2024 9:06 AM CDT) [...] MD LAB BLOOD ORDERABLES Fi nal Result [facility] ([place] 1 [facility] Department [place] [address] * (ABNORMAL) Comprehensive metabolic panel (12/09/2024 9:06 [...] Fi nal Result BRITTANY OLSON ([place]) 1 [facility] Department [place] [address] * COLONOSCOPY IMAGES (12/28/2013) Anatomical Region Laterality Modality Other Narrative 12/28/2013 Ordered by an unspecified provider. Historical Provider GI PROCEDURE ORDERABLES F inal Result from Last 3 Months or Most Recently Relevant to Health Maintenance Insurance [employer] MED[employer]ARE [employer] [facility] MEDICARE MEDICARE BLUE ACCESS OOS Advance Directives For more information, please contact: [phone] * Full Code (Latest Code Status on File) Date Activated Date Inactivated Comments 09/29/2018 12:28 PM 09/30/2018 4:44 AM Care Teams Language Asst Relationship Specialty Start Date End Date Dmitriy Hargrove MD PCP - General 09/27/16
--- OUTSIDE RECORDS SUMMARY | 2025-02-01 12:00 | XMS_ITS ---
Author Organization [facility] Address [address] [place] [phone] Care Team Providers Care Talent Analyst Name Role Phone Dmitriy Hargrove MD Primary [...] 08/30/2022 Assessment & Plan (08/30/2022 2:14 PM SECONDARY ENGLISH TEACHER): Home sleep study rule out sleep apnea call back for results Purulent postnasal drainage 08/09/2022 Assessment & Plan (08/09/2022 2:00 PM SECONDARY ENGLISH TEACHER): Continue Pepcid 20 mg twice daily Start [...] 07/23/2021 Assessment & Plan (08/13/2021 3:32 PM SECONDARY ENGLISH TEACHER): Hearing test - [facility], consider Cochlear implant candidacy based on results [facility] [phone] [place] [address] Assessment & Plan (07/23/2021 10:16 AM SECONDARY ENGLISH TEACHER): Obtain Hearing test from [facility] and then call regarding candidacy for Cochlear implant Oropharyngeal dysphagia 07/23/2021 Assessment & Plan (07/23/2021 10:16 AM SECONDARY ENGLISH TEACHER): Esophagram - call with results Centralized Scheduling: Sacroiliitis 07/03/2021 Laryngopharyngeal reflux (LPR) 06/01/2021 Assessment & Plan (08/09/2022 2:00 PM SECONDARY ENGLISH TEACHER): Continue Pepcid 20 mg twice daily Start Flonase 2 sprays into each nostril while looking down over the sink, do not sniff in or blow nose after use for at least 30 minutes 50 ounces of caffeine free and soda free fluid daily No masses or lesions on the voice box Assessment & Plan (06/01/2021 8:53 AM SECONDARY ENGLISH TEACHER): Call if ears plug up Start Pepcid 20 mg at bedtime to help with pain with swallowing, call if difficulty swallowing does not improve 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 Assessment & Plan (05/06/2019 1:49 PM SECONDARY ENGLISH TEACHER): Normotensive in clinic. Continue to monitor while [...] 03/25/2023 Assessment & Plan (08/30/2022 2:14 PM SECONDARY ENGLISH TEACHER): Check CBC, CMP, thyroid studies, B12, vitamin-D, [...] 10/22/2021 Assessment & Plan (06/01/2021 8:53 AM SECONDARY ENGLISH TEACHER): Call if ears plug up Continue Hearing Aids Dizziness and giddiness 06/01/2021 09/2 11/2022 Assessment & Plan (07/23/2021 10:16 AM SECONDARY ENGLISH TEACHER): Obtain Hearing test from [facility] and then call regarding candidacy for Cochlear implant Avoid salt in diet 50 ounces of caffeine free and soda free fluid daily Continue Hearing aids Esophagram - call with results Centralized Scheduling: Assessment & Plan (06/01/2021 9:52 AM SECONDARY ENGLISH TEACHER): Will arrange follow up to discuss this [...] sx today. Will Cnt. To closely monitor. lobsterman (current) use of opiate analgesic 09/29/2019 11/26/2019 [...] 05/06/2019 Assessment & Plan (05/06/2019 1:51 PM SECONDARY ENGLISH TEACHER): Given little response from 7 day course [...] ongoing pain, consultation placed to [facility] neurosurgey to review his imaging, condition and surgical candidacy. Certainly if he is not a surgical candidate, we will consult Pain Management again for injections given his success. Cnt. With ibuprofen, heat, gradual stretching as prior advised. Assessment & Plan (08/19/2019 2:19 PM SECONDARY ENGLISH TEACHER): Primarily left sided sciatic pain. Will provide [...] Cnt. With some strengthening exercises, seek out daycare director, Cnt. With increased dose of meloxicam as [...] 06/02/2020 Assessment & Plan (05/06/2019 1:57 PM SECONDARY ENGLISH TEACHER): Chronic w/ flare-up x 2-3 months. No improvement with mobic after 2 months- advised to discontinue. Cont with chiropractor adjustments, heat/ice, and stretching as advised. Will RTC if imaging if desired. Assessment & Plan (06/09/2017 4:33 PM SECONDARY ENGLISH TEACHER): I have recommended we proceed with x-ray [...] 12/08/2017 Assessment & Plan (06/09/2017 4:32 PM SECONDARY ENGLISH TEACHER): After obtaining patient's consent his annual influenza [...] b.i.d. for full 10 day course long [id number] Flonase certainly if symptoms persist or worsen [...]
--- OUTSIDE RECORDS SUMMARY | 2025-02-01 12:00 | XMS_ITS | Encounter Summary ---
Author Organization [facility] Address [address] [place] [id number] Care Team Providers Care Therapist Speech Name Role Phone Dmitriy Hargrove MD Primary Care Provider Reason for Visit * Reason Onset Date Comments Scheduling Appointments 07/31/2021 no answe r to confirm [place] exam Encounter Details Date Type Department Care Team ([facility] Contact Info) Description 07/31/2021 Telephone [facility] [address] [place] [phone] Apurva Rapp RT Scheduling Appointments (no answer [...] on file Legal Sex Male 7:39 PM LIVE IN CAREGIVER Gender Identity Not on file Sexual Orientation [...] COVID: Suspected 05/21/2022 05/21/2022 05/21/2022 10:52 AM LIVE IN CAREGIVER COVID: Suspected 08/27/2022 08/27/2022 08/27/2022 5:20 PM LIVE IN CAREGIVER COVID: Suspected 01/13/2023 01/13/2023 01/13/2023 11:21 AM CDT COVID: Suspected 03/25/2023 03/25/2023 03/25/2023 3:56 PM CDT COVID: Suspected 01/25/2024 01/25/2024 01/25/2024 2:25 PM CDT COVID: Suspected 09/16/2024 09/16/2024 09/16/2024 10:00 AM CDT COVID: Suspected 01/13/2025 01/13/2025 01/13/2025 1:45 PM CDT documented as of this encounter Care Teams Therapist Speech Relationship Specialty Start Date End Date Dmitriy Hargrove MD PCP - General 09/27/16 documented as of this encounter
--- OUTSIDE RECORDS SUMMARY | 2025-02-01 12:00 | XMS_ITS | Encounter Summary ---
Author Organization [facility] Address [address] [place] [address] Phone Care Team Providers Care Solder Cream Maker Name Role Phone Dmitriy Hargrove MD Primary Care Provider Encounter Details Date Type Department Care Team (Late st Contact Info) Description 11/10/2017 Orders Only [facility] ProviderRigoberto MD [address] [place] [address] Social History Tobacco Use Types Packs/Day Years Used Date Smoking Tobacco: Never Smokeless Tobacco: Never Alcohol Use Standard Drinks/Week Comments Yes 0 (1 standard drink = 0.6 oz pur e alcohol) Sex and Gender Information Value Date Recorded Sex Assigned at Not on file Legal Sex Male 7:39 PM TRACK MECHANIC Gender Identity Not on file Sexual Orientation [...] COVID: Suspected 05/21/2022 05/21/2022 05/21/2022 10:52 AM TRACK MECHANIC COVID: Suspected 08/27/2022 08/27/2022 08/27/2022 5:20 PM TRACK MECHANIC COVID: Suspected 01/13/2023 01/13/2023 01/13/2023 11:21 AM CDT COVID: Suspected 03/25/2023 03/25/2023 03/25/2023 3:56 PM CDT COVID: Suspected 01/25/2024 01/25/2024 01/25/2024 2:25 PM CDT COVID: Suspected 09/16/2024 09/16/2024 09/16/2024 10:00 AM CDT COVID: Suspected 01/13/2025 01/13/2025 01/13/2025 1:45 PM CDT documented as of this encounter Care Teams Solder Cream Maker Relationship Specialty Start Date End Date Dmitriy Hargrove MD PCP - General 09/27/16 documented as of this encounter
--- NOTE | 2025-02-01 13:57 | ED_ITS ---
HPI - General Adult General Chief complaint: Extremity Injury, Lower Stated complaint: knee issues Time Seen by Provider: 02/01/25 12:02 History of Present Illness HPI narrative: This is an 84-year-old male presenting with left knee pain. No known injury. Slowly getting worse over the last week. Started with clicking and popping but now has become constant. No fevers. No swelling to the leg. Patient notes he has sciatica on that side and had numbness does great toe for about 1 year Related Data Home Medications ?Medication ?Instructions ?Recorded ?Confirmed ?Last Taken ?Type No Home Medications 01/27/25 01/27/25 Unknown History Allergies Allergy/AdvReac Type Severity Reaction Status Date / Time benzonatate Allergy Mild Itching Verified 01/27/25 10:10 tramadol Allergy Mild Itching Verified 01/27/25 10:10 lisinopril AdvReac Mild Cough Verified 01/27/25 10:10 PMFSH Past Medical History Medical History Prostate CA Arthritis Chronic GERD Hyperlipidemia HTN (hypertension) TIA (transient ischemic attack) Surgical History Surgical History H/O Spinal surgery Family History Family History Father Diabetes mellitus Mother Hypertension Social History Social History Social History: Caffeine-coffee Smoking status: Former smoker Alcohol intake: current Alcohol use details: rarely Substance use: never Substance use type: does not use Lack of Transportation: No Lack of Food: Never True Current Housing: I Do Not Have Housing Concerned About Future Housing: No Difficulty Paying Gas/Electric Bills: No Difficulty Paying for Meds: No Currently Unemployed: No Education: Grade School Difficulty w/ Childcare or Family Care: No Living arrangements: alone Spiritual care concerns: No Agree to blood products: Yes Exam Narrative: APPEARANCE: No apparent distress. Head: atraumatic. EYES: EOMI, NOSE: Atraumatic NECK: Trachea midline RESPIRATORY: No increased rate of breathing CARDIOVASCULAR: RRR, ABDOMINAL: Non-distended MUSCULOSKELETAl: Focal exam of the left knee is unremarkable. There is no significant swelling. No warmth or overlying skin changes. Pulses are +2 in the foot. Sensation to light touch is intact. Motor function is intact. NEURO: Alert. Moving 4/4 extremities SKIN:: Warm, dry. Normal color PSYCHIATRIC: Normal affect Course Vital Signs Vital signs: Vital Signs Temperature 97.7 F 02/01/25 11:50 Pulse Rate 60 02/01/25 11:50 Respiratory Rate 16 02/01/25 11:50 Blood Pressure 144/83 H 02/01/25 11:50 Pulse Oximetry 98 02/01/25 11:50 Oxygen Delivery Room Air 02/01/25 11:50 Temperature 97.7 F 02/01/25 11:50 Pulse Rate 60 02/01/25 11:50 Respiratory Rate 16 02/01/25 11:50 Blood Pressure 144/83 H 02/01/25 11:50 Pulse Oximetry 98 02/01/25 11:50 Oxygen Delivery Room Air 02/01/25 11:50 Medical Decision Making MDM Narrative Medical decision making narrative: * -Course: 84-year-old male presenting with atraumatic left knee pain. Physical exam was unremarkable. X-rays negative for acute fracture. Patient treated with low-dose Motrin Tylenol. Given referral to orthopedics for further evaluation. -DDX includes but is not limited to: Arthritis, internal derangement, septic joint Vital Signs Vital Signs: Vital Signs Temperature 97.7 F 02/01/25 11:50 Pulse Rate 60 02/01/25 11:50 Respiratory Rate 16 02/01/25 11:50 Blood Pressure 144/83 H 02/01/25 11:50 Pulse Oximetry 98 02/01/25 11:50 Oxygen Delivery Room Air 02/01/25 11:50 Temperature 97.7 F 02/01/25 11:50 Pulse Rate 60 02/01/25 11:50 Respiratory Rate 16 02/01/25 11:50 Blood Pressure 144/83 H 02/01/25 11:50 Pulse Oximetry 98 02/01/25 11:50 Oxygen Delivery Room Air 02/01/25 11:50 Discharge Plan Discharge Clinical Impression: Acute knee pain Patient Disposition: Home Condition: Stable Instructions: Antibiotic Form, Knee Pain (ED) Additional Instructions: Please use Tylenol or motrin for any pain. Please follow-up with the orthopedic surgeon listed below. Please return if develop severe pain, weakness to your leg, fevers or any new or worsening symptoms. Patient Language: Malaysian Prescriptions: No Action No Home Medications Follow-up/Referrals: Fabián Wiseman MD [Physician] - 1 Week (Knee pain ) Beena,Dmitriy Alcala MD [Primary Care Provider] -
[2025-02-01] MEDS: ACETAMINOPHEN 500 MG TABLET 1000 MG PO (14:21)
[2025-02-01] MEDS: IBUPROFEN 400 MG TABLET PO (14:21)
== END 2025-02-01 14:20 | disposition home or self-care (01) ==
PROVIDERS: Emergency Provider Emergency Medicine; PCP Internal Medicine
DX: M25.562 Pain in left knee (principal); I10 Essential (primary) hypertension; E78.5 Hyperlipidemia, unspecified; K21.9 Gastro-esophageal reflux disease without esophagitis; M19.90 Unspecified osteoarthritis, unspecified site; Z85.46 Personal history of malignant neoplasm of prostate; Z86.73 Personal history of transient ischemic attack (TIA), and cerebral infarction without residual deficits; Z87.891 Personal history of nicotine dependence
CPT/HCPCS: 73564; 99283; A9270